=== PATIENT | female | born 1940 | race Two or more races ===

== ENCOUNTER 2020-05-23 13:25 | Inpatient (IN) | payer MEDICARE, MEDICAID ==
[~2020-05-23] VITALS: Ht 154.9 cm; Wt 64.4 kg
--- NOTE | 2020-05-23 13:44 | Emergency Room Report ---
History of Present Illness General Chief Complaint: Abdominal Pain Source: Patient (Jamie Billingsley MD) Present Illness HPI Patient is a 80-year-old female presents for increased epigastric pain and right upper abdominal pain. Onset of symptoms after eating approximately 15 to 20 minutes. Reports having increased sharp pain to the right upper abdomen. Associated nausea and vomiting without hematemesis. Onset of symptoms today. Reports having prior tubal ligation but denies any other surgeries. Prior history of CVA and is taking unknown blood thinner. Patient had not been having any hematemesis.Pain was waxing and waning. Sharp in nature (Jamie Billingsley MD) Allergies: Coded Allergies: No Known Allergies (Unverified , 05/23/20) COVID-19 Screening Contact w/high risk pt: No Experienced COVID-19 symptoms?: No COVID-19 Testing performed SUSTAINABILITY COMMUNICATOR: No (Jamie Billingsley MD) Patient History Past Medical History: see triage record Reviewed Nursing Documentation: PMH: Agreed; PSxH: Agreed (Jamie Billingsley MD) Nursing Documentation-PMH Past Medical History: No History, Except For Hx Hypertension: Yes Hx Cerebrovascular Accident: Yes (Jamie Billingsley MD) Review of Systems All Other Systems: negative except mentioned in HPI (Jamie Billingsley MD) Physical Exam Vital Signs Date Time Temp Pulse Resp B/P (MAP) Pulse Ox O2 Delivery O2 Flow Rate FiO2 05/23/20 13:30 97.0 73 17 138/70 (92) 98 Room Air Sp02 EP Interpretation: reviewed, normal General Appearance: normal inspection, alert, GCS 15, moderate distress, Chronically Ill Head: atraumatic ENT: normal ENT inspection, hearing grossly normal, normal voice Neck: normal inspection, full range of motion, supple, no bony tend Respiratory: normal inspection, lungs clear, normal breath sounds, no respiratory distress, no retraction, no wheezing Cardiovascular #1: regular rate, rhythm, no edema Gastrointestinal: normal inspection, normal bowel sounds, soft, no guarding, no hernia, tenderness - Right upper abdomen and epigastric tenderness Genitourinary: no CVA tenderness Musculoskeletal: normal inspection, back normal, normal range of motion Neurologic: alert, motor strength/tone normal, mosaic floor layer III-XII nml as tested, oriented x3, responsive, speech normal, normal inspection Psychiatric: normal inspection, judgement/insight normal, mood/affect normal Skin: no rash (Jamie Billingsley MD) Medical Decision Making Diagnostic Impression: Primary Impression: Acute pancreatitis ER Course Patient presented for epigastric and right upper quadrant pain. Diagnosis include was not limited to cholecystitis, bowel obstruction, gastroenteritis, aortic aneurysm among others. Because of complexity of patient's case laboratory tests and imaging studies were ordered. Patient was noted to have significant tenderness to the right upper abdomen. Patient was given IV pain medication as well as antiemetics. Patient's laboratory testing showed some evidence of pancreatitis EKG interpreted by me showed normal sinus rhythm with a rate of [address] or T wave changes noted. Patient was endorsed to Dr. Man pending final disposition anticipate the patient will likely be hospitalized for further management of pancreatitis. Labs Test 05/23/20 13:50 White Blood Count 18.0 K/UL (4.8-10.8) Red Blood Count 4.80 M/UL (4.20-5.40) Hemoglobin 15.5 G/DL (12.0-16.0) Hematocrit 47.4 % (37.0-47.0) Mean Corpuscular Volume 99 FL (80-99) Mean Corpuscular Hemoglobin 32.3 PG (27.0-31.0) Mean Corpuscular Hemoglobin Concent 32.7 G/DL (32.0-36.0) Red Cell Distribution Width 12.9 % (11.6-14.8) Platelet Count 235 K/UL (150-450) Mean Platelet Volume 8.0 FL (6.5-10.1) Neutrophils (%) (Auto) % (45.0-75.0) Lymphocytes (%) (Auto) % (20.0-45.0) Monocytes (%) (Auto) % (1.0-10.0) Eosinophils (%) (Auto) % (0.0-3.0) Basophils (%) (Auto) % (0.0-2.0) Differential Total Cells Counted 100 Neutrophils % (Manual) 75 % (45-75) Lymphocytes % (Manual) 21 % (20-45) Monocytes % (Manual) 3 % (1-10) Eosinophils % (Manual) 1 % (0-3) Basophils % (Manual) 0 % (0-2) Band Neutrophils 0 % (0-8) Platelet Estimate Adequate Platelet Morphology Normal Red Blood Cell Morphology Normal Prothrombin Time 11.2 SEC (9.30-11.50) Prothromb Time International Ratio 1.0 (0.9-1.1) Activated Partial Thromboplast Time 25 SEC (23-33) Sodium Level 141 MMOL/L (136-145) Potassium Level 3.9 MMOL/L (3.5-5.1) Chloride Level 106 MMOL/L (98-107) Carbon Dioxide Level 26 MMOL/L (21-32) Anion Gap 10 mmol/L (5-15) Blood Urea Nitrogen 15 mg/dL (7-18) Creatinine 1.1 MG/DL (0.55-1.30) Estimat Glomerular Filtration Rate 47.9 mL/min (>60) Glucose Level 115 MG/DL (74-106) Calcium Level 9.0 MG/DL (8.5-10.1) Total Bilirubin 0.6 MG/DL (0.2-1.0) Aspartate Amino Transf (AST/SGOT) 34 U/L (15-37) Alanine Aminotransferase (ALT/SGPT) 15 U/L (12-78) Alkaline Phosphatase 72 U/L (46-116) Troponin I 0.007 ng/mL (0.000-0.056) Total Protein 8.0 G/DL (6.4-8.2) Albumin 3.8 G/DL (3.4-5.0) Globulin 4.2 g/dL Albumin/Globulin Ratio 0.9 (1.0-2.7) Lipase > 2000 U/L (73-393) (Jamie Billingsley MD) ER Course Assumed care of the patient from the previous provider at approximately 1430. Please refer to initial note for full history and physical exam. Briefly, 80-year-old female presenting for abdominal pain. Labs are consistent with acute pancreatitis lipase greater than 2000. White count elevated 18. LFT and bilirubin within normal limits. CT now resulted showing pancreatic pseudocyst but no pancreatic head necrosis. Gallbladder dilated but no obvious stones noted. Patient will be admitted for acute pancreatitis. Given broad- spectrum antibiotics IV fluids and pain medications. GI and general surgery consulted. Admitted to Dr. Lawson as he is the assigned hospitalist for her insurance plan. (Jose Man MD) Last Vital Signs Date Time Temp Pulse Resp B/P (MAP) Pulse Ox O2 Delivery O2 Flow Rate FiO2 05/23/ 13:30 97.0 73 17 138/70 (92) 98 Room Air Status: unchanged (Jamie Billingsley MD) Disposition: ADMITTED INPATIENT Condition: Serious Scripts Unable to Obtain Active Prescriptions or Reported Meds Jamie Billingsley MD May 23, 2020 13:44 Jose Man MD May 23, 2020 16:22
[2020-05-23] MEDS ORDERED: Morphine Sulfate 2mg/ml Inj(IV/IM USE ONLY) IVP ONE (13:45)
[2020-05-23] MEDS ORDERED: Omnipaque-300 100ml vial INJ PRN (13:45)
[2020-05-23 13:55] VITALS: BP 132/71
--- NOTE | 2020-05-23 13:55 | NUR ---
ED Nurse Note: Pt walked into ED for abdominal pain and nausea since 1300 today. Pt had BM adn then had sudden sever pain in lower abdomen and vomiting. Pain is 10/10. Pt is alert and orientedx4, ambulatory. She has been seen by [facility].
[2020-05-23 13:56] LABS: HEMATOCRIT 47.4 % (37.0-47.0); HEMOGLOBIN 15.5 G/DL (12.0-16.0); MEAN CORPUSCULAR VOLUME 99 FL (80-99); PLATELET COUNT 235 K/UL (150-450); RED CELL DISTRIBUTION WIDTH 12.9 % (11.6-14.8)
[2020-05-23 14:07] LABS: ANION GAP 10 mmol/L (5-15); BLOOD UREA NITROGEN 15 mg/dL (7-18); CARBON DIOXIDE 26 MMOL/L (21-32); CHLORIDE 106 MMOL/L (98-107); CREATININE 1.1 MG/DL (0.55-1.30); POTASSIUM 3.9 MMOL/L (3.5-5.1); SODIUM 141 MMOL/L (136-145)
[2020-05-23 14:12] LABS: ALANINE AMINOTRANSFERASE 15 U/L (12-78); ALBUMIN 3.8 G/DL (3.4-5.0); ALBUMIN/GLOBULIN RATIO 0.9 (1.0-2.7); ALKALINE PHOSPHATASE 72 U/L (46-116); ASPARTATE AMINO TRANSFERASE 34 U/L (15-37); BILIRUBIN,TOTAL 0.6 MG/DL (0.2-1.0)
[2020-05-23 15:51] VITALS: BP 128/73
--- NOTE | 2020-05-23 15:51 | Diagnostic Imaging Report ---
Clinical Indication: Epigastric and right upper abdominal pain Technique: No oral contrast utilized, per emergency room physician request IV administration nonionic contrast. Venous phase spiral acquisition obtained through the abdomen and pelvis. Multiplanar reconstructions were generated. Total dose length product 294 mGycm. CTDIvol(s) 5 mGy. Dose reduction achieved using automated exposure control Comparison: none Findings: The pancreas is mildly prominent. There is infiltration of the peripancreatic fat. Fluid is seen tracking into the lesser sac, and along the mesenteric root and Gerota's fascia on the right. A small amount of fluid is also seen over the dome of the spleen. There is a cystic lesion in the pancreatic tail which measures 2 cm in diameter. No other organized fluid collection demonstrated. The pancreas enhances normally. The gallbladder is distended. Demonstrates a small amount of mural calcification and mural edema. No definite gallstones. The common bile duct is borderline dilated, measuring 7 mm diameter. No definite downstream obstructive lesion is demonstrated. The liver demonstrates multiple subcentimeter low-attenuation lesions which are too small to characterize. The spleen, adrenals, kidneys are unremarkable. No retroperitoneal or mesenteric mass or adenopathy. No pelvic mass or adenopathy. Lack of enteric contrast limits assessment of the GI tract. The colon demonstrates multiple diverticula. The appendix is normal. The small bowel is nondilated. No free intraperitoneal gas demonstrated. Distal esophagus is slightly fluid-filled. The stomach and duodenum are unremarkable. The included lung bases demonstrate bilateral posterior dependent atelectatic changes. The bones demonstrate degenerative spondylosis changes. Impression: Evidence of acute pancreatitis. No evidence of pancreatic necrosis 2 cm cystic lesion in the pancreatic tail. If there is been prior history of pancreatitis, this likely represents a pseudocyst. However, the possibility of pancreatic cystic neoplasm should also be considered and follow-up imaging is recommended Distended gallbladder without stones. Mild gallbladder wall edema. Likely reactive related to the the pancreatic inflammation, but the possibility of acute cholecystitis should also be considered. Borderline extra hepatic biliary ductal dilatation without downstream obstructive lesion demonstrated, probably age-related Subcentimeter low-attenuation lesions in the liver, too small to characterize, most likely benign simple cysts or bile hamartomas Colonic diverticula. No evidence of diverticulitis Fluid-filled esophagus, probably due to age-related dysmotility Basilar dependent pulmonary atelectatic changes and degenerative spondylosis changes incidentally noted The CT scanner at [facility] is accredited by the [employer] and the scans are performed using protocols designed to limit radiation exposure to as low as reasonably achievable to attain images of sufficient resolution adequate for diagnostic evaluation.
[2020-05-23 15:59] LABS: APPEARANCE,URINE CLEAR; BILIRUBIN, URINE NEGATIVE (NEGATIVE); COLOR,URINE PALE YELLOW; GLUCOSE, URINE (UA) NEGATIVE (NEGATIVE); KETONES,URINE 2+ (NEGATIVE); LEUKOCYTE ESTERASE ,URINE NEGATIVE (NEGATIVE); NITRITE,URINE NEGATIVE (NEGATIVE); PH,URINE 5 (4.5-8.0); PROTEIN,URINE NEGATIVE (NEGATIVE); UROBILINOGEN,URINE NORMAL MG/DL (0.0-1.0)
[2020-05-23] MEDS ORDERED: Piperacillin/Tazobactam 3.375 GM in NS 110 ML IVPB ONE (16:00)
[2020-05-23] MEDS ORDERED: Morphine Sulfate 2mg/ml Inj(IV/IM USE ONLY) IVP PRN (16:30)
[2020-05-23] MEDS ORDERED: ASPIRIN81 MG ORAL (16:33)
[2020-05-23] MEDS ORDERED: HYDROCHLOROTHIA25 MG ORAL (16:33)
[2020-05-23] MEDS ORDERED: DONEPEZIL HCL5 M2 ORAL (16:33)
[2020-05-23] MEDS ORDERED: ENALAPRIL MALEA20 MG ORAL (16:33)
--- NOTE | 2020-05-23 16:34 | NUR ---
ED Nurse Note: report given to RONNA Dia
--- NOTE | 2020-05-23 16:40 | NUR ---
ED Nurse Note: Pt transferred to MS floor with all belongings. Pt has not acute distress.
[2020-05-23 16:45] VITALS: BP 147/92
--- NOTE | 2020-05-23 16:45 | NUR ---
NURSE NOTES: Patient received from ER, via gurney on RA. Respirations even/unlabored. No distress. Patient resting in left lateral position in bed. AOx4 (daughter reports patient is forgetful), calm, Palauan speaking (daughter at bedside to translate). Remains NPO. No NV, RUQ abdominal pain 02/17. IV LW, saline lock, site asymptomatic. All skin assessed (back, elbows, hips, knees, ankles, pedal, heels, sacral), no impairment noted, pedal skin dry/flaky/intact. Gait unsteady, to bathroom, instructed daughter/patient not to get out of bed without assistance. Oriented patient to room, call light and surroundings. Call light in reach, bed in lowest position, will continue to monitor. Belongings (glasses/dentures/purse remain with patient) reviewed with daughter.
--- NOTE | 2020-05-23 17:47 | Diagnostic Imaging Report ---
Indication: Chest pain Technique: One view of the chest Comparison: none Findings: Lungs and pleural spaces are clear. Heart size is normal. Aorta is tortuous and ectatic Impression: No acute process
--- NOTE | 2020-05-23 18:30 | NUR ---
NURSE NOTES: Dr. Lawson called for admission orders, asked to call back, will call back shortly.
--- NOTE | 2020-05-23 18:45 | NUR ---
NURSE NOTES: Called Dr. Lawson back for admission orders, detailed message left with call back number.
--- NOTE | 2020-05-23 19:42 | NUR ---
NURSE HAND-OFF: Important Events on Shift:ER admission Patient Status: stable Diet: NPO Pending Orders: admission orders needed from Dr. Lawson Pending Results/Labs:none Pending MD notification:awaiting call back from Dr. Lawson Latest Vital Signs: Temperature 97.0 , Pulse 70 , B/P 147 /92 , Respiratory Rate 18 , O2 SAT 96 , Room Air, O2 Flow Rate . Vital Sign Comment: none Latest Mast Fall Score: 75 Fall Risk: High Risk Safety Measures: Call light Within Reach, Bed Alarm Zone 1, Side Rails Side Rails x2, Bed position Low and Locked. Fall Precautions: Yellow Socks Yellow Gown Door Sign Patient Fall Education Report given to Thomas FRIEND.
--- NOTE | 2020-05-23 19:45 | NUR ---
NURSE NOTES: Received patient in bed, alert and oriented x4, on room air,no SOB noted. In pain of 8/10. Family at bedside. Granddaughter Vivien with contact # [phone]. Will follow up admission orders to Dr. Lawson. Instructed to use call light for assistance. Call light and needs in reach. Bed in lowest and lock engaged. Will monitor.
--- NOTE | 2020-05-23 20:15 | NUR ---
NURSE NOTES: [employer] Attendant made aware of MD's no callback.
--- NOTE | 2020-05-23 20:30 | NUR ---
NURSE NOTES: Called Dr. Lawson's emergency # and left message for 3rd attempt. Waiting for call back.
--- NOTE | 2020-05-23 20:45 | NUR ---
NURSE NOTES: Obtained admission orders from Dr. Lawson. Will carry out.
[2020-05-23 21:00] VITALS: BP 173/79
[2020-05-23 21:15] VITALS: BP 159/68
[2020-05-23] MEDS: Hydromorphone 0.5mg/0.5ml inj IVP PRN (21:34)
[2020-05-24] VITALS (9 sets, daily range): BP systolic 93–180; BP diastolic 73–86
--- NOTE | 2020-05-24 01:15 | NUR ---
NURSE NOTES: Charge nurse made aware of patient's blood pressure. Trends down when patient is resting. Will continue to monitor.
[2020-05-24] MEDS: Hydromorphone 0.5mg/0.5ml inj IVP PRN ×3 (04:55→16:20)
--- NOTE | 2020-05-24 06:00 | NUR ---
NURSE NOTES: Patient had 1 episode of moderate dark green vomitus. Charge nurse made aware.
[2020-05-24 06:29] LABS: HEMATOCRIT 46.5 % (37.0-47.0); HEMOGLOBIN 15.1 G/DL (12.0-16.0); MEAN CORPUSCULAR VOLUME 100 FL (80-99); PLATELET COUNT 243 K/UL (150-450); RED BLOOD COUNT 4.65 M/UL (4.20-5.40); RED CELL DISTRIBUTION WIDTH 13.2 % (11.6-14.8); WHITE BLOOD COUNT 17.8 K/UL (4.8-10.8)
[2020-05-24 07:16] LABS: ANION GAP 11 mmol/L (5-15); BLOOD UREA NITROGEN 17 mg/dL (7-18); CALCIUM 8.4 MG/DL (8.5-10.1); CARBON DIOXIDE 24 MMOL/L (21-32); CHLORIDE 107 MMOL/L (98-107); CREATININE 1.1 MG/DL (0.55-1.30); POTASSIUM 3.6 MMOL/L (3.5-5.1); SODIUM 142 MMOL/L (136-145)
--- NOTE | 2020-05-24 07:28 | NUR ---
NURSE HAND-OFF: Important Events on Shift: Admission orders from MD, pain mgt, vomited x1 Patient Status: increased BP Diet: NPO except meds and ice chips Pending Orders: am labs Pending Results/Labs: Pending MD notification: Latest Vital Signs: Temperature 98.6 , Pulse 87 , B/P 151 /79 , Respiratory Rate 20 , O2 SAT 93 , Room Air, O2 Flow Rate . Vital Sign Comment: Latest Mast Fall Score: 75 Fall Risk: High Risk Safety Measures: Call light Within Reach, Bed Alarm Zone 1, Side Rails Side Rails x3, Bed position Low and Locked. Fall Precautions: Yellow Socks Door Sign Patient Fall Education Report given to RONNA Chen.
--- NOTE | 2020-05-24 07:52 | NUR ---
NURSE NOTES: Received report from RONNA Guzman. Pt awake in bed in RA, alert and oriented but forgetful, Occitan speaking,able to make needs known. Breathing even and unlabored. Denies pain at this time. Endorsed by night nurse that pt had 1 episode of vomiting this morning and high BP. IV intact and patent running IVF. Bed in low position and locked. Call light within reach. Will continue to monitor.
[2020-05-24 08:08] LABS: AMYLASE 606 U/L (25-115)
--- NOTE | 2020-05-24 08:31 | NUR ---
NURSE NOTES: Received report from Lab, Amylase is 606. Left voice mail to Dr. Lawson
--- NOTE | 2020-05-24 10:16 | Diagnostic Imaging Report ---
EXAM: US Abdomen Limited, Gallbladder CLINICAL HISTORY: Abdominal pain. Patient is a 80-year-old female presents for increased epigastric pain and right upper abdominal pain. Onset of symptoms after eating approximately 15 to 20 minutes. Reports having increased sharp pain to the right upper abdomen. Associated nausea and vomiting without hematemesis. Onset of symptoms today. Reports having prior tubal ligation but denies any other surgeries. Prior history of CVA and is taking unknown blood thinner. Patient had not been having any hematemesis. Pain was waxing and waning. Sharp in nature TECHNIQUE: Real-time ultrasound of the right upper quadrant with image documentation. COMPARISON: No relevant prior studies available. FINDINGS: Liver: Liver diameter of 14.7 cm. No visible parenchymal lesions. No intrahepatic biliary ductal dilatation. Gallbladder: Distended gallbladder with mild wall thickening up to 4.2 mm. No visible stones or sludge. No pericholecystic fluid. Common bile duct: Common bile duct diameter of 5.2 mm, within normal limits. Pancreas: Unremarkable as visualized. Aorta: Proximal abdominal aorta appears within normal limits. Mid and distal abdominal aorta are scattered by bowel gas. IMPRESSION: Distended gallbladder with mild wall thickening up to 4.2 mm. No visible stones or sludge. No pericholecystic fluid. Normal diameter of the common bile duct.
--- NOTE | 2020-05-24 12:30 | NUR ---
NURSE NOTES: BP 180/86, c/o abd pain 7/10. Clonidine 0.1mg PRN and Dilaudid 0.5mg PRN given. Will continue to monitor.
--- NOTE | 2020-05-24 13:45 | Consultation ---
DATE OF CONSULTATION: 05/24/2020 CHIEF COMPLAINT: Abdominal pain, pancreatitis. HISTORY OF PRESENT ILLNESS: This is a very pleasant 80-year-old female with past medical history of diabetes, hypertension presented to the hospital with complaint of acute onset of abdominal pain with vomiting. The patient was diagnosed with pancreatitis based on elevated amylase and lipase. CT of the abdomen and pelvis in the ER showed evidence of 2 cm pancreatic cystic lesion in the tail, questionable pseudocyst from prior pancreatitis and mildly dilated common bile duct, distended gallbladder without stone. The patient had same symptoms about 2 months ago according to her went away with drinking hot water and it came back again. PAST MEDICAL HISTORY: 1. Hypertension. 2. Diabetes. 3. Diverticulosis. PAST SURGICAL HISTORY: None. ALLERGIES: To penicillin. MEDICATIONS: Please see medication reconciliation list. SOCIAL HISTORY: The patient denies any tobacco, alcohol, or drug abuse. FAMILY HISTORY: Noncontributory. REVIEW OF SYSTEMS: A 10-point review of systems performed and pertinent positives in HPI. PHYSICAL EXAMINATION: VITAL SIGNS: Temperature is 98.8, pulse 83, respirations 20, blood pressure . HEENT: Normocephalic and atraumatic. Sclerae anicteric. NECK: Supple. No evidence of obvious lymphadenopathy. CARDIOVASCULAR: Regular rate. Plus S1 and S2. LUNGS: Clear to auscultation bilaterally. ABDOMEN: Positive bowel sounds. There is tenderness to palpation in the epigastric area and right upper quadrant. No rebound. No guarding. No peritoneal sign. EXTREMITIES: No cyanosis, no clubbing, no edema. LABORATORY DATA: White count 17.8, hemoglobin 15, hematocrit 46, platelets are 243. ASSESSMENT: The patient is a 80-year-old female with pancreatitis, pancreatic lesion, questionable cyst versus pseudocyst versus the cystic tumor. Distended gallbladder without any stone, mildly dilated common bile duct, diverticulosis. PLAN: At this time the cause of pancreatitis is not clear. The patient denies any alcohol usage. Gallbladder is distended, but there was no stone, so we are going to order an abdominal ultrasound for further evaluation to see if there is any gallstones in the gallbladder. If there is a gallstones, the most probably diagnosis would be gallstone pancreatitis. If there is no gallstones, we will consider doing either EUS versus MRCP on Tuesday for further evaluation of the cystic lesion of the pancreas and also to evaluate for dilated common bile duct. Meanwhile, the patient to be kept NPO, IV fluids for hydration. Repeat labs for tomorrow. Lipid panel for tomorrow. We will follow closely. I want to thank, Dr. Lawson, for this kind referral. Pablito Hall M.D. DR: Eder JOB#: [id number] CC: Antonio Lawson M.D.; Fax#: [phone]
--- NOTE | 2020-05-24 16:14 | History and Physical Report ---
DATE OF ADMISSION: 05/23/2020 HISTORY OF PRESENT ILLNESS: This is a 80-year-old female who came in with abdominal pain to the hospital. This occurred approximately an hour before presentation. She had right-sided upper abdominal pain. The patient was admitted to the hospital. She underwent a complete workup. There was concern she may have had pancreatitis. Gastroenterology and Surgery were consulted. The patient has a previous history of CVA. HOME MEDICATIONS: Antihypertensives and an unknown blood thinner. REVIEW OF SYSTEMS: Denies any headaches, hematemesis, melena, hematochezia, or weight loss. PHYSICAL EXAMINATION: GENERAL: A 80-year-old female. HEENT: Unremarkable. LUNGS: Clear breath sounds. ABDOMEN: Soft. There is epigastric discomfort and right upper quadrant tenderness. VITAL SIGNS: Blood pressure is 170/80, heart rate 84, respirations 18, she is afebrile. LABORATORY TESTING: White count 17.8, hemoglobin 15. Amylase 600, lipase over 2000, glucose 200. Coags are negative. Urinalysis is negative. IMAGING STUDIES: The patient underwent abdominal ultrasound, which shows distended gallbladder with mild wall thickening. CBD of 5.2 mm. She underwent a chest x-ray, which showed clear lung weinberg bilaterally. She also underwent a abdominopelvic CT, which showed bibasilar atelectasis, evidence of pancreatitis with a 2.0 cm cystic lesion in the pancreatic tail, which could represent cirrhosis. The gallbladder is distended with mild gallbladder edema. IMPRESSION: 1. Pancreatitis. 2. Possible pseudocyst. 3. Possible cholecystitis. 4. History of CVA. 5. Hyperglycemia. 6. Diabetes. 7. Hypertension. DISCUSSION: Admit to the hospital. We will initiate clonidine by mouth, broad-spectrum antibiotics, IV fluids, DVT prophylaxis. GI and Surgery have been consulted. We will follow. Antonio Lawson M.D. DR: VALENTIN JOB#: [id number] CC:
--- NOTE | 2020-05-24 18:10 | Consultation ---
History of Present Illness General Date patient seen: May 24, 2020 Reason for Hospitalization: Abdominal Pain Present Illness HPI 80 year old female presented to [facility] [place] ED with complaints of acute onset RUQ abdominal pain x 1 day. no n/v/f/c. radiation to the back. nml flatus and bm. similar pain prior but not as severe. surgery called to evaluate and assist with care. patient seen, chart reviewed, patient examined. states pain improved since admission. currently feels better. lip elevated and remains elevated. is not hungry. imaging reviewed Allergies: Coded Allergies: PENICILLINS (Unverified Allergy, Intermediate, 05/23/20) Per daughter, unknown reaction COVID-19 Screening Contact w/high risk pt: No Experienced COVID-19 symptoms?: No Medication History Scheduled Aspirin* (Aspirin*), 81 MG ORAL DAILY, (Reported) Donepezil Hcl* (Donepezil Hcl*), 5 MG ORAL DAILY, (Reported) Enalapril Maleate* (Enalapril Maleate*), 20 MG ORAL EVERY 12 HOURS, (Reported) Hydrochlorothiazide* (Hydrochlorothiazide*), 25 MG ORAL DAILY, (Reported) Patient History History Provided By: Medical Record, PMD Healthcare decision maker Resuscitation status Advanced Directive on File Past Medical/Surgical History Past Medical/Surgical History: (1) Acute pancreatitis (2) Gallstone pancreatitis Review of Systems Review of Symptoms General ROS: no weight loss or fever Psychological ROS: no depression or mood changes, no memory loss Ophthalmic ROS: no visual changes or eye irritation ENT ROS: no nasal congestion, hearing loss, dizziness Allergy and Immunology ROS: no allergic symptoms or urticaria Hematological and Lymphatic ROS: no swollen glands, unusual bleeding or bruising Endocrine ROS: no polyuria, polydipsia, weight changes, temperature intolerance Respiratory ROS: no cough, shortness of breath, or wheezing Cardiovascular ROS: no chest pain or dyspnea on exertion Gastrointestinal ROS: denies abdominal pain, bright red blood in stool. Musculoskeletal ROS: no myalgias or arthralgias Neurological ROS: no TIA or stroke symptoms Dermatological ROS: no new or changing skin lesions, rashes or pruritis Physical Exam Physical Exam General appearance: alert, cooperative, no distress, appears stated age Head: Normocephalic, without obvious abnormality, atraumatic Eyes: conjunctivae/corneas clear. PERRL, EOM's intact. Fundi benign Throat: Lips, mucosa, and tongue normal. Teeth and gums normal Neck: supple, symmetrical, trachea midline, no adenopathy, thyroid: not enlarg ed, symmetric, no tenderness/mass/nodules, no carotid bruit and no JVD Lungs: clear to auscultation bilaterally Heart: regular rate and rhythm, S1, S2 normal, no murmur, click, rub or gallop Abdomen: soft, non-tender. Bowel sounds normal. No masses, no organomegaly Extremities: extremities normal, atraumatic, no cyanosis or edema Pulses: 2+ and symmetric Skin: Skin color, texture, turgor normal. No rashes or lesions Neurologic: Grossly normal Last 24 Hour Vital Signs Date Time Temp Pulse Resp B/P (MAP) Pulse Ox O2 Delivery O2 Flow Rate FiO2 05/24/20 16:50 98.8 05/24/20 16:19 160/76 05/24/20 16:00 98.9 86 20 160/76 (104) 94 05/24/20 12:56 98.8 05/24/20 12:25 180/86 05/24/20 12:00 99.0 84 20 180/86 (117) 94 05/24/20 10:40 172/80 05/24/20 09:00 Room Air 05/24/20 08:00 98.8 83 20 172/80 (110) 94 05/24/20 04:55 98.6 87 20 151/79 (103) 93 05/24/20 00:45 162/73 (102) 05/24/20 00:35 168/78 (108) 05/24/20 00:30 98.4 81 19 169/79 (109) 94 05/23/20 21:15 159/68 (98) 05/23/20 21:00 Room Air 05/23/20 21:00 98.8 68 18 173/79 (110) 95 Intake and Output 05/23/20 05/24/20 19:00 07:00 Intake Total 0 ml 600 ml Output Total 50 ml Balance -50 ml 600 ml Intake Oral 0 ml IV Total 600 ml Output Emesis 50 ml # Voids 1 Laboratory Tests Test 05/24/20 05:10 White Blood Count 17.8 K/UL (4.8-10.8) H Red Blood Count 4.65 M/UL (4.20-5.40) Hemoglobin 15.1 G/DL (12.0-16.0) Hematocrit 46.5 % (37.0-47.0) Mean Corpuscular Volume 100 FL (80-99) H Mean Corpuscular Hemoglobin 32.5 PG (27.0-31.0) H Mean Corpuscular Hemoglobin Concent 32.5 G/DL (32.0-36.0) Red Cell Distribution Width 13.2 % (11.6-14.8) Platelet Count 243 K/UL (150-450) Mean Platelet Volume 7.4 FL (6.5-10.1) Neutrophils (%) (Auto) % (45.0-75.0) Lymphocytes (%) (Auto) % (20.0-45.0) Monocytes (%) (Auto) % (1.0-10.0) Eosinophils (%) (Auto) % (0.0-3.0) Basophils (%) (Auto) % (0.0-2.0) Differential Total Cells Counted 100 Neutrophils % (Manual) 86 % (45-75) H Lymphocytes % (Manual) 3 % (20-45) L Monocytes % (Manual) 1 % (1-10) Eosinophils % (Manual) 0 % (0-3) Basophils % (Manual) 0 % (0-2) Band Neutrophils 10 % (0-8) H Platelet Estimate Adequate Platelet Morphology Normal Macrocytosis 1+ Sodium Level 142 MMOL/L (136-145) Potassium Level 3.6 MMOL/L (3.5-5.1) Chloride Level 107 MMOL/L (98-107) Carbon Dioxide Level 24 MMOL/L (21-32) Anion Gap 11 mmol/L (5-15) Blood Urea Nitrogen 17 mg/dL (7-18) Creatinine 1.1 MG/DL (0.55-1.30) Estimat Glomerular Filtration Rate 47.9 mL/min (>60) Glucose Level 200 MG/DL (74-106) H Calcium Level 8.4 MG/DL (8.5-10.1) L Amylase Level 606 U/L (25-115) *H Lipase > 2000 U/L (73-393) H Height (Feet): 5 Height (Inches): 2.00 Weight (Pounds): 140 Medications Current Medications Medications (Trade) Dose Ordered Sig/Solomon Route PRN Reason Start Time Stop Time Status Last Admin Dose Admin Clonidine HCl (Catapres Tab) 0.1 mg Q4H PRN ORAL For High Blood Pressure 05/24/20 12:00 08/22/20 11:59 05/24/20 16:19 Hydromorphone HCl (Dilaudid) 0.5 mg Q4H PRN IVP Severe Pain (Pain Scale 7-10) 05/23/20 21:00 05/30/20 20:59 05/24/20 16:20 Iohexol (OMNIPAQUE-300 100ml) 100 ml NOW PRN INJ Radiology Procedure 05/23/20 13:45 05/25/20 13:44 Morphine Sulfate (Morphine Sulfate) 2 mg Q4H PRN IVP For Pain 05/23/20 16:30 05/30/20 16:29 05/23/20 16:26 Ondansetron HCl (Zofran) 4 mg Q6H PRN IVP Nausea & Vomiting 05/24/20 10:00 06/23/20 09:59 Sodium Chloride 1,000 ml @ 75 mls/hr [id number] IV 05/23/20 21:00 06/22/20 20:59 05/24/20 10:39 Assessment/Plan Problem List: (1) Acute pancreatitis Assessment & Plan: Possible acute acalculous cholecystitis with acute pancreatitis US and CT noted labs reviewed GI input noted npo iv fluids trend labs bowel rest will follow with exams thank you Liver: Liver diameter of 14.7 cm. No visible parenchymal lesions. No intrahepatic biliary ductal dilatation. Gallbladder: Distended gallbladder with mild wall thickening up to 4.2 mm. No visible stones or sludge. No pericholecystic fluid. Common bile duct: Common bile duct diameter of 5.2 mm, within normal limits. Pancreas: Unremarkable as visualized. Aorta: Proximal abdominal aorta appears within normal limits. Mid and distal abdominal aorta are scattered by bowel gas. IMPRESSION: Distended gallbladder with mild wall thickening up to 4.2 mm. No visible stones or sludge. No pericholecystic fluid. Normal diameter of the common bile duct. ICD Codes: K85.90 - Acute pancreatitis without necrosis or infection, unspecified SNOMED: 370198140 (2) Gallstone pancreatitis Assessment & Plan: The pancreas is mildly prominent. There is infiltration of the peripancreatic fat. Fluid is seen tracking into the lesser sac, and along the mesenteric root and Gerota's fascia on the right. A small amount of fluid is also seen over the dome of the spleen. There is a cystic lesion in the pancreatic tail which measures 2 cm in diameter. No other organized fluid collection demonstrated. The pancreas enhances normally. The gallbladder is distended. Demonstrates a small amount of mural calcification and mural edema. No definite gallstones. The common bile duct is borderline dilated, measuring 7 mm diameter. No definite downstream obstructive lesion is demonstrated. The liver demonstrates multiple subcentimeter low-attenuation lesions which are too small to characterize. The spleen, adrenals, kidneys are unremarkable. No retroperitoneal or mesenteric mass or adenopathy. No pelvic mass or adenopathy. Lack of enteric contrast limits assessment of the GI tract. The colon demonst rates multiple diverticula. The appendix is normal. The small bowel is nondilated. No free intraperitoneal gas demonstrated. Distal esophagus is slightly fluid-filled. The stomach and duodenum are unremarkable. The included lung bases demonstrate bilateral posterior dependent atelectatic changes. The bones demonstrate degenerative spondylosis changes. Impression: Evidence of acute pancreatitis. No evidence of pancreatic necrosis 2 cm cystic lesion in the pancreatic tail. If there is been prior history of pancreatitis, this likely represents a pseudocyst. However, the possibility of pancreatic cystic neoplasm should also be considered and follow-up imaging is recommended Distended gallbladder without stones. Mild gallbladder wall edema. Likely reactive related to the the pancreatic inflammation, but the possibility of acute cholecystitis should also be considered. Borderline extra hepatic biliary ductal dilatation without downstream obstructive lesion demonstrated, probably age- related Subcentimeter low-attenuation lesions in the liver, too small to characterize, most likely benign simple cysts or bile hamartomas Colonic diverticula. No evidence of diverticulitis Fluid-filled esophagus, probably due to age-related dysmotility Basilar dependent pulmonary atelectatic changes and degenerative spondylosis changes incidentally noted ICD Codes: K85.10 - Biliary acute pancreatitis without necrosis or infection SNOMED: [id number] Christiano Barger May 24, 2020 18:10
--- NOTE | 2020-05-24 19:29 | NUR ---
NURSE HAND-OFF: Important Events on Shift:[Critical Amylase level, high BP, Pain was controlled, No N/V, US ABD done.] Patient Status: [stable] Diet: [NPO] Pending Orders: [] Pending Results/Labs:[] Pending MD notification:[] Latest Vital Signs: Temperature 98.8 , Pulse 86 , B/P 160 /76 , Respiratory Rate 20 , O2 SAT 94 , Room Air, O2 Flow Rate . Vital Sign Comment: [high BP] Latest Mast Fall Score: 75 Fall Risk: High Risk Safety Measures: Call light Within Reach, Bed Alarm Zone 1, Side Rails Side Rails x3, Bed position Low and Locked. Fall Precautions: Yellow Socks Door Sign Patient Fall Education Report given to [RONNA Campbell].
--- NOTE | 2020-05-24 19:39 | NUR ---
NURSE NOTES: Pt is sitting up in bed, awake on RA, alert and oriented but forgetful at times, reportedly. Bel[place]ian speaking, able to make needs known, no complaints at this time, denies pain presently. Breathing even and unlabored. No nausea, but an episode earlier this morning, denies nausea at present. IV intact L hand, patent, asymptomatic running IVF NS at 75 ml/h. Bed is in lowest position and locked, bed alarm on, asked pt to use call light if she needs to get up, verbalized understanding. Call light within reach. Will continue to monitorpt, in room close to nursing station, fall precautions in place.
--- NOTE | 2020-05-24 23:45 | NUR ---
NURSE NOTES: Called to inform Dr Lawson of increasing temperature. Temp was 101.2. Cooling measures applied and will admin Tylenol and reassess, will continue to monitor. No new orders given. Addendum: 05/24/20 at 2350 by Shannan Ambrose RN will admin cooling measures, no tylenol, will reassess temperature
[2020-05-25] VITALS (8 sets, daily range): BP systolic 142–162; BP diastolic 66–80
[2020-05-25] MEDS: Hydromorphone 0.5mg/0.5ml inj IVP PRN ×3 (00:43→21:20)
[2020-05-25 06:41] LABS: HEMATOCRIT 42.8 % (37.0-47.0); MEAN CORPUSCULAR VOLUME 99 FL (80-99); PLATELET COUNT 214 K/UL (150-450); WHITE BLOOD COUNT 24.8 K/UL (4.8-10.8)
--- NOTE | 2020-05-25 06:53 | NUR ---
NURSE NOTES: Informed Dr Hall that pt was febrile overnight, current temp 99.0. Just received order for tylenol for temp >100.5, input order Informed that pt had critical lab WBC count of 24.8 trending up from 17.8
--- NOTE | 2020-05-25 07:03 | NUR ---
NURSE HAND-OFF: Important Events on Shift:Critical high WBC at 24.8, from previous day (17.8)Left voicemail for Dr Lawson regarding critical lab and informed Dr Hall in person. Informed Dr Hall that pt was febrile overnight up to 101.2 at highest, current temp 99.0 orally. Just received order for tylenol for temp >100.5, input order Informed Dr that pt had critical lab WBC count of 24.8 trending up from 17.8 Patient Status: ( slightly febrile, BP elevated overnight, gave clonidine 0.1 mg twice. ] Diet: Pending Orders: Pending Results/Labs: Pending MD notification: Latest Vital Signs: Temperature 99.0 , Pulse 89 , B/P 142 /66 , Respiratory Rate 19 , O2 SAT 93 , Room Air, O2 Flow Rate . Vital Sign Comment: Latest Mast Fall Score: 75 Fall Risk: High Risk Safety Measures: Call light Within Reach, Bed Alarm Zone 1, Side Rails Side Rails x3, Bed position Low and Locked. Fall Precautions: Yellow Socks Door Sign Patient Fall Education Report given to .
[2020-05-25 07:20] LABS: ALANINE AMINOTRANSFERASE 20 U/L (12-78); ALBUMIN 2.7 G/DL (3.4-5.0); ALBUMIN/GLOBULIN RATIO 0.7 (1.0-2.7); ALKALINE PHOSPHATASE 63 U/L (46-116); AMYLASE 329 U/L (25-115); ANION GAP 8 mmol/L (5-15); ASPARTATE AMINO TRANSFERASE 24 U/L (15-37); BILIRUBIN,TOTAL 0.8 MG/DL (0.2-1.0); BLOOD UREA NITROGEN 18 mg/dL (7-18); CARBON DIOXIDE 25 MMOL/L (21-32); CHLORIDE 110 MMOL/L (98-107); CHOLESTEROL 133 MG/DL (< 200); HDL CHOLESTEROL 45 MG/DL (40-60); POTASSIUM 3.6 MMOL/L (3.5-5.1); SODIUM 143 MMOL/L (136-145); TRIGLYCERIDES 59 MG/DL (30-150)
--- NOTE | 2020-05-25 07:45 | NUR ---
NURSE NOTES: Received report from Niharika Campbell. Pt asleep in bed in RA. Breathing even and unlabored. Endorsed by offgoing nurse, that Pt had high BP, febrile over the night and critical high WBC. Will follow up. IV intact L hand, patent, asymptomatic running IVF NS at 75 ml/h. Bed is in lowest position and locked. Call light within reach. Will continue to monitor.
--- NOTE | 2020-05-25 09:07 | General Progress Note ---
Subjective ROS Limited/Unobtainable: Yes Allergies: Coded Allergies: PENICILLINS (Unverified Allergy, Intermediate, 05/23/20) Per daughter, unknown reaction Objective Last 24 Hour Vital Signs Date Time Temp Pulse Resp B/P (MAP) Pulse Ox O2 Delivery O2 Flow Rate FiO2 05/25/20 08:00 99.8 81 18 143/67 (92) 93 05/25/20 05:00 99.0 142/66 (91) 05/25/20 04:48 155/78 05/25/20 04:29 99.9 89 19 155/78 (103) 93 05/25/20 01:40 99.3 142/72 (95) 05/24/20 23:52 162/76 05/24/20 23:39 101.2 85 19 162/76 (104) 94 05/24/20 21:00 Room Air 05/24/20 20:00 100.3 85 17 93/73 (80) 94 05/24/20 16:50 98.8 05/24/20 16:19 160/76 05/24/20 16:00 98.9 86 20 160/76 (104) 94 05/24/20 12:56 98.8 05/24/20 12:25 180/86 05/24/20 12:00 99.0 84 20 180/86 (117) 94 05/24/20 10:40 172/80 Intake and Output 05/24/20 05/25/20 19:00 07:00 Intake Total 825 ml Output Total 400 ml Balance -400 ml 825 ml IV Total 825 ml Output Urine Total 400 ml # Voids 2 3 Laboratory Tests 05/25/20 04:50: White Blood Count 24.8*H, Red Blood Count 4.30, Hemoglobin 14.0, Hematocrit 42.8, Mean Corpuscular Volume 99, Mean Corpuscular Hemoglobin 32.5H, Mean Corpuscular Hemoglobin Concent 32.6, Red Cell Distribution Width 13.0, Platelet Count 214, Mean Platelet Volume 6.7, Neutrophils (%) (Auto) , Lymphocytes (%) (Auto) , Monocytes (%) (Auto) , Eosinophils (%) (Auto) , Basophils (%) (Auto) , Differential Total Cells Counted 100, Neutrophils % (Manual) 88H, Lymphocytes % (Manual) 8L, Monocytes % (Manual) 4, Eosinophils % (Manual) 0, Basophils % (Manual) 0, Band Neutrophils 0, Platelet Estimate Adequate, Platelet Morphology Normal, Red Blood Cell Morphology , Macrocytosis 1+, Sodium Level 143, Potassium Level 3.6, Chloride Level 110H, Carbon Dioxide Level 25, Anion Gap 8, Blood Urea Nitrogen 18, Creatinine 1.0, Estimat Glomerular Filtration Rate 53.5, Glucose Level 118H, Calcium Level 8.0L, Total Bilirubin 0.8, Aspartate Amino Transf (AST/SGOT) 24, Alanine Aminotransferase (ALT/SGPT) 20, Alkaline Phosphatase 63, Total Protein 6.7, Albumin 2.7L, Globulin 4.0, Albumin/Globulin Ratio 0.7L, Triglycerides Level 59, Cholesterol Level 133, LDL Cholesterol 70, HDL Cholesterol 45, Cholesterol/HDL Ratio 3.0L, Amylase Level 329H, Lipase 1212H Height (Feet): 5 Height (Inches): 2.00 Weight (Pounds): 140 General Appearance: no apparent distress EENT: normal ENT inspection Neck: supple Cardiovascular: normal rate Respiratory/Chest: decreased breath sounds Abdomen: hypoactive bowel sounds, tender Extremities: non-tender Assessment/Plan Problem List: (1) Acute pancreatitis ICD Codes: K85.90 - Acute pancreatitis without necrosis or infection, unspecified SNOMED: [id number] Assessment/Plan: ? cause for pancreatitis CT and us reviewed 2 cm ? pseudocyst vs cystic pancreatic lesion improving lipase start clears MRI of abd IGG 4 repeat labs possible EUS Pablito Hall MD May 25, 2020 09:07
[2020-05-25] MEDS ORDERED: Gadavist 7.5mMol/7.5ml vial IV PRN (09:15)
--- NOTE | 2020-05-25 10:36 | Pulmonology Progress Note ---
Subjective ROS Limited/Unobtainable: Yes Interval Events: Seen by gastroenterology and surgery. Constitutional: Reports: no symptoms HEENT: Repors: no symptoms Respiratory: Reports: no symptoms Cardiovascular: Reports: no symptoms Gastrointestinal/Abdominal: Reports: nausea Genitourinary: Reports: no symptoms Neurologic: Reports: no symptoms Psychiatric: Reports: no symptoms Allergies: Coded Allergies: PENICILLINS (Unverified Allergy, Intermediate, 05/23/20) Per daughter, unknown reaction Objective Last 24 Hour Vital Signs Date Time Temp Pulse Resp B/P (MAP) Pulse Ox O2 Delivery O2 Flow Rate FiO2 05/25/20 09:00 Room Air 05/25/20 08:00 99.8 81 18 143/67 (92) 93 05/25/20 05:00 99.0 142/66 (91) 05/25/20 04:48 155/78 05/25/20 04:29 99.9 89 19 155/78 (103) 93 05/25/20 01:40 99.3 142/72 (95) 05/24/20 23:52 162/76 05/24/20 23:39 101.2 85 19 162/76 (104) 94 05/24/20 21:00 Room Air 05/24/20 20:00 100.3 85 17 93/73 (80) 94 05/24/20 16:50 98.8 05/24/20 16:19 160/76 05/24/20 16:00 98.9 86 20 160/76 (104) 94 05/24/20 12:56 98.8 05/24/20 12:25 180/86 05/24/20 12:00 99.0 84 20 180/86 (117) 94 05/24/20 10:40 172/80 Intake and Output 05/24/20 05/25/20 19:00 07:00 Intake Total 825 ml Output Total 400 ml Balance -400 ml 825 ml IV Total 825 ml Output Urine Total 400 ml # Voids 2 3 General Appearance: no acute distress HEENT: normocephalic Respiratory: chest wall non-tender, lungs clear Cardiovascular: normal peripheral pulses Abdomen: normal bowel sounds Microbiology Date/Time Source Procedure Growth Status 05/23/20 15:08 Nasopharynx SARS-CoV-2 RdRp Gene Assay - Final Complete Laboratory Tests 05/25/20 04:50: White Blood Count 24.8*H, Red Blood Count 4.30, Hemoglobin 14.0, Hematocrit 42.8, Mean Corpuscular Volume 99, Mean Corpuscular Hemoglobin 32.5H, Mean Corpuscular Hemoglobin Concent 32.6, Red Cell Distribution Width 13.0, Platelet Count 214, Mean Platelet Volume 6.7, Neutrophils (%) (Auto) , Lymphocytes (%) (Auto) , Monocytes (%) (Auto) , Eosinophils (%) (Auto) , Basophils (%) (Auto) , Differential Total Cells Counted 100, Neutrophils % (Manual) 88H, Lymphocytes % (Manual) 8L, Monocytes % (Manual) 4, Eosinophils % (Manual) 0, Basophils % (Manual) 0, Band Neutrophils 0, Platelet Estimate Adequate, Platelet Morphology Normal, Red Blood Cell Morphology , Macrocytosis 1+, Sodium Level 143, Potassium Level 3.6, Chloride Level 110H, Carbon Dioxide Level 25, Anion Gap 8, Blood Urea Nitrogen 18, Creatinine 1.0, Estimat Glomerular Filtration Rate 53.5, Glucose Level 118H, Calcium Level 8.0L, Total Bilirubin 0.8, Aspartate Amino Transf (AST/SGOT) 24, Alanine Aminotransferase (ALT/SGPT) 20, Alkaline Phosphatase 63, Total Protein 6.7, Albumin 2.7L, Globulin 4.0, Albumin/Globulin Ratio 0.7L, Triglycerides Level 59, Cholesterol Level 133, LDL Cholesterol 70, HDL Cholesterol 45, Cholesterol/HDL Ratio 3.0L, Amylase Level 329H, Lipase 1212H Current Medications Medications (Trade) Dose Ordered Sig/Solomon Route PRN Reason Start Time Stop Time Status Last Admin Dose Admin Acetaminophen (Tylenol) 650 mg Q6H PRN ORAL Temp >100.5 05/25/20 07:00 06/24/20 06:59 Clonidine HCl (Catapres Tab) 0.1 mg Q4H PRN ORAL For High Blood Pressure 05/24/20 12:00 08/22/20 11:59 05/25/20 04:48 Gadobutrol (Gadavist) 7.5 mmol NOW PRN IV Radiology Procedure 05/25/20 09:15 05/29/20 09:14 Hydromorphone HCl (Dilaudid) 0.5 mg Q4H PRN IVP Severe Pain (Pain Scale 7-10) 05/23/20 21:00 11/20/20 20:59 05/25/20 10:10 Iohexol (OMNIPAQUE-300 100ml) 100 ml NOW PRN INJ Radiology Procedure 05/23/20 13:45 05/25/20 13:44 Morphine Sulfate (Morphine Sulfate) 2 mg Q4H PRN IVP For Pain 05/23/20 16:30 05/30/20 16:29 05/23/20 16:26 Ondansetron HCl (Zofran) 4 mg Q6H PRN IVP Nausea & Vomiting 05/24/20 10:00 06/23/20 09:59 Sodium Chloride 1,000 ml @ 75 mls/hr [id number] IV 05/23/20 21:00 06/22/20 20:59 05/24/20 23:55 Assessment/Plan Assessment/Plan IMPRESSION: 1. Pancreatitis. 2. Possible pseudocyst. 3. Possible cholecystitis. 4. History of CVA. 5. Hyperglycemia. 6. Diabetes. 7. Hypertension. DISCUSSION: Continue antibiotics. Continue n.p.o. Continue IV fluids. Continue GI and DVT prophylaxis. Await follow-up consultations by gastroenterology and general surgery. Has had increase in WBC. Will consult ID. Antonio Lawson M.D. Antonio Lawson MD May 25, 2020 10:36
--- NOTE | 2020-05-25 13:30 | Consultation ---
DATE OF CONSULTATION: 05/25/2020 INFECTIOUS DISEASES CONSULTATION CONSULTING PHYSICIAN: Albino Yeh MD. REFERRING PHYSICIAN: Antonio Lawson MD. REASON FOR CONSULTATION: Leukocytosis and pancreatitis. HISTORY OF PRESENTING ILLNESS: This is a 80-year-old lady with history of hypertension who comes in with abdominal pain. There is a concern for pancreatitis. There is an increasing leukocytosis. An Infectious Diseases consultation has been obtained for antibiotics. PAST MEDICAL HISTORY: 1. History of hypertension. 2. History of CVA. SOCIAL HISTORY: She does not smoke, drink, or use drugs. FAMILY HISTORY: Noncontributory. REVIEW OF SYSTEMS: RESPIRATORY: She had fever and chills. No cough. No shortness of breath or chest pain. CARDIAC: No chest pain. No palpitation. No dizziness. No syncope. GASTROINTESTINAL: No nausea. No vomiting. She does have abdominal pain. No diarrhea. MEDICATIONS: As an inpatient, she is on Tylenol, clonidine, Zofran, Dilaudid, morphine. ALLERGIES: To penicillin, produces a rash. PHYSICAL EXAMINATION: VITAL SIGNS: Temperature of 99.8, T-max of 101.2, pulse of 81, respiratory rate 18, blood pressure 143/67, O2 saturation 93% on room air. HEENT: Pupils equally reactive to light and accommodation. Mouth appears clean without thrush. NECK: Supple. No adenopathy. No JVD. CARDIOVASCULAR: Regular rate and rhythm. No murmurs. LUNGS: Clear to auscultation bilaterally. No crackles. No wheezes. ABDOMEN: Soft. There is epigastric and left upper quadrant tenderness. No organomegaly. EXTREMITIES: No cyanosis, no clubbing, no edema. LABORATORY AND DIAGNOSTIC DATA: White count 24.8, hemoglobin 14, hematocrit 42.8, MCV 99, platelet count of 214, with neutrophils of 88%. Sodium 143, potassium 3.6, chloride 110, bicarb 25, BUN 18, creatinine 1, glucose 118, calcium of 8. Total bilirubin 0.8, AST 24, ALT 20, alkaline phosphatase 63, total protein 6.7, albumin 2.7. Cholesterol of 133. Amylase of 329. Lipase of 1212. UA is showing LE negative. COVID-[address] of the abdomen and pelvis showing evidence of acute pancreatitis. No pancreatic necrosis, 2.2 centimeter cystic lesion in the pancreatic tissue could represent a pseudocyst, distended gallbladder without stones, mild gallbladder wall edema likely reactive with possible acute cholecystitis, extrahepatic biliary ductal dilatation without downstream obstruction, colonic diverticula noted, no diverticulitis, atelectasis noted. Chest x-ray showing no acute process. Abdominal ultrasound showed distended gallbladder with mild thickening. No stones or sludge. No pericholecystic fluid. ASSESSMENT: This is a 80-year-old lady with history of hypertension and CVA who comes in with abdominal pain and fevers and is found to have. 1. Pancreatitis. 2. Leukocytosis. 3. She could have possible pancreatic pseudocyst. 4. She could also possibly have cholecystitis. PLAN: 1. We will start the patient on meropenem. 2. She has been seen by Surgery. 3. We will follow up the patient clinically. I would like to thank, Dr. Lawson, for this consultation. Albino Yeh M.D. DR: Ricky JOB#: [id number] CC: Antonio Lawson M.D.; Fax#: [phone]
[2020-05-25] MEDS: Meropenem 500 MG in NS 55 ML IVPB SCH ×2 (14:02→21:18)
--- NOTE | 2020-05-25 14:21 | NUR ---
CASE MANAGEMENT:INITIAL REVIEW 05/24/20 80 YR OLD FEMALE FROM HOME CC;ABDOMINAL PAIN. VOMITING. SI;ACUTE GALLSTONE PANCREATITIS. 97.0 85 19 138/70 98% ON RA WBC 18.0 LIPASE >2000 UA+ KETONES RAPID COVID ~ NEGATIVE ABD/PELVIS CT ~ Evidence of acute pancreatitis. No evidence of pancreatic necrosis CXR ~ NO ACUTE PROCESS IS;ZOFRAN IV PEPCID IV MORPHINE SULFATE IV IVF NS BOLUS X2 ZOSYN IV ADMITTED TO MED SURG 05/23/20 @ 2047 MED SURG STATUS CASE MANAGEMENT:CONCURRENT REVIEW 05/24/20 SI;ACUTE PANCREATITIS T 101.2 P 89 R 20 BP 162/76 O2 93% ON RA WBC 24.8 BG 200 AMYLASE 606 LIPASE >2000 IS;MEROPENEM IV Q8 CLONIDINE PO DILAUDID IV Q4 PRN IVF NS @ 75 ML/HR MED SURG STATUS DCP;FROM HOME
--- NOTE | 2020-05-25 16:11 | Cardiology Report ---
APPROVED REPORT EKG Measurement Heart [id number] [id number] <Conclusion> Normal sinus rhythm Left axis deviation Moderate voltage criteria for LVH, may be normal variant Possible Lateral infarct, age undetermined Abnormal ECG
--- NOTE | 2020-05-25 17:15 | Surgery Progress Note ---
Surgery Progress Note Subjective Additional Comments feels better pain improved leukocytosis lip trending down mri ?eus Objective Last 24 Hour Vital Signs Date Time Temp Pulse Resp B/P (MAP) Pulse Ox O2 Delivery O2 Flow Rate FiO2 05/25/20 16:00 98.7 94 18 159/70 (99) 93 05/25/20 15:04 162/68 05/25/20 12:00 98.8 81 18 162/68 (99) 93 05/25/20 10:40 99.8 05/25/20 09:00 Room Air 05/25/20 08:00 99.8 81 18 143/67 (92) 93 05/25/20 05:00 99.0 142/66 (91) 05/25/20 04:48 155/78 05/25/20 04:29 99.9 89 19 155/78 (103) 93 05/25/20 01:40 99.3 142/72 (95) 05/24/20 23:52 162/76 05/24/20 23:39 101.2 85 19 162/76 (104) 94 05/24/20 21:00 Room Air 05/24/20 20:00 100.3 85 17 93/73 (80) 94 I&O Intake and Output 05/24/20 05/25/20 19:00 07:00 Intake Total 825 ml Output Total 400 ml Balance -400 ml 825 ml IV Total 825 ml Output Urine Total 400 ml # Voids 2 3 Cardiovascular: RSR Respiratory: clear Abdomen: soft, non-tender, present bowel sounds Extremities: no tenderness, no cyanosis Laboratory Tests Test 05/25/20 04:50 White Blood Count 24.8 K/UL (4.8-10.8) *H Red Blood Count 4.30 M/UL (4.20-5.40) Hemoglobin 14.0 G/DL (12.0-16.0) Hematocrit 42.8 % (37.0-47.0) Mean Corpuscular Volume 99 FL (80-99) Mean Corpuscular Hemoglobin 32.5 PG (27.0-31.0) H Mean Corpuscular Hemoglobin Concent 32.6 G/DL (32.0-36.0) Red Cell Distribution Width 13.0 % (11.6-14.8) Platelet Count 214 K/UL (150-450) Mean Platelet Volume 6.7 FL (6.5-10.1) Neutrophils (%) (Auto) % (45.0-75.0) Lymphocytes (%) (Auto) % (20.0-45.0) Monocytes (%) (Auto) % (1.0-10.0) Eosinophils (%) (Auto) % (0.0-3.0) Basophils (%) (Auto) % (0.0-2.0) Differential Total Cells Counted 100 Neutrophils % (Manual) 88 % (45-75) H Lymphocytes % (Manual) 8 % (20-45) L Monocytes % (Manual) 4 % (1-10) Eosinophils % (Manual) 0 % (0-3) Basophils % (Manual) 0 % (0-2) Band Neutrophils 0 % (0-8) Platelet Estimate Adequate Platelet Morphology Normal Red Blood Cell Morphology Macrocytosis 1+ Sodium Level 143 MMOL/L (136-145) Potassium Level 3.6 MMOL/L (3.5-5.1) Chloride Level 110 MMOL/L (98-107) H Carbon Dioxide Level 25 MMOL/L (21-32) Anion Gap 8 mmol/L (5-15) Blood Urea Nitrogen 18 mg/dL (7-18) Creatinine 1.0 MG/DL (0.55-1.30) Estimat Glomerular Filtration Rate 53.5 mL/min (>60) Glucose Level 118 MG/DL (74-106) H Calcium Level 8.0 MG/DL (8.5-10.1) L Total Bilirubin 0.8 MG/DL (0.2-1.0) Aspartate Amino Transf (AST/SGOT) 24 U/L (15-37) Alanine Aminotransferase (ALT/SGPT) 20 U/L (12-78) Alkaline Phosphatase 63 U/L (46-116) Total Protein 6.7 G/DL (6.4-8.2) Albumin 2.7 G/DL (3.4-5.0) L Globulin 4.0 g/dL Albumin/Globulin Ratio 0.7 (1.0-2.7) L Triglycerides Level 59 MG/DL (30-150) Cholesterol Level 133 MG/DL (< 200) LDL Cholesterol 70 mg/dL (<100) HDL Cholesterol 45 MG/DL (40-60) Cholesterol/HDL Ratio 3.0 (3.3-4.4) L Amylase Level 329 U/L (25-115) H Lipase 1212 U/L (73-393) H Plan Problems: (1) Acute pancreatitis Assessment & Plan: Possible acute acalculous cholecystitis with acute pancreatitis US and CT noted labs reviewed GI input noted npo iv fluids trend labs bowel rest will follow with exams thank you Liver: Liver diameter of 14.7 cm. No visible parenchymal lesions. No intrahepatic biliary ductal dilatation. Gallbladder: Distended gallbladder with mild wall thickening up to 4.2 mm. No visible stones or sludge. No pericholecystic fluid. Common bile duct: Common bile duct diameter of 5.2 mm, within normal limits. Pancreas: Unremarkable as visualized. Aorta: Proximal abdominal aorta appears within normal limits. Mid and distal abdominal aorta are scattered by bowel gas. IMPRESSION: Distended gallbladder with mild wall thickening up to 4.2 mm. No visible stones or sludge. No pericholecystic fluid. Normal diameter of the common bile duct. (2) Gallstone pancreatitis Assessment & Plan: The pancreas is mildly prominent. There is infiltration of the peripancreatic fat. Fluid is seen tracking into the lesser sac, and along the mesenteric root and Gerota's fascia on the right. A small amount of fluid is also seen over the dome of the spleen. There is a cystic lesion in the pancreatic tail which measures 2 cm in diameter. No other organized fluid collection demonstrated. The pancreas enhances normally. The gallbladder is distended. Demonstrates a small amount of mural calcification and mural edema. No definite gallstones. The common bile duct is borderline dilated, measuring 7 mm diameter. No definite downstream obstructive lesion is demonstrated. The liver demonstrates multiple subcentimeter low-attenuation lesions which are too small to characterize. The spleen, adrenals, kidneys are unremarkable. No retroperitoneal or mesenteric mass or adenopathy. No pelvic mass or adenopathy. Lack of enteric contrast limits assessment of the GI tract. The colon demonstrates multiple diverticula. The appendix is normal. The small bowel is nondilated. No free intraperitoneal gas demonstrated. Distal esophagus is slightly fluid-filled. The stomach and duodenum are unremarkable. The included lung bases demonstrate bilateral posterior dependent atelectatic changes. The bones demonstrate degenerative spondylosis changes. Impression: Evidence of acute pancreatitis. No evidence of pancreatic necrosis 2 cm cystic lesion in the pancreatic tail. If there is been prior history of pancreatitis, this likely represents a pseudocyst. However, the possibility of pancreatic cystic neoplasm should also be considered and follow-up imaging is recommended Distended gallbladder without stones. Mild gallbladder wall edema. Likely reactive related to the the pancreatic inflammation, but the possibility of acute cholecystitis should also be considered. Borderline extra hepatic biliary ductal dilatation without downstream obstructive lesion demonstrated, probably age- related Subcentimeter low-attenuation lesions in the liver, too small to characterize, most likely benign simple cysts or bile hamartomas Colonic diverticula. No evidence of diverticulitis Fluid-filled esophagus, probably due to age-related dysmotility Basilar dependent pulmonary atelectatic changes and degenerative spondylosis changes incidentally noted Christiano Barger May 25, 2020 17:15
--- NOTE | 2020-05-25 19:27 | NUR ---
NURSE HAND-OFF: Important Events on Shift:[Start IV ATB, High bp, high WBC] Patient Status: [stable] Diet: [Clear liquid] Pending Orders: [] Pending Results/Labs:[] Pending MD notification:[] Latest Vital Signs: Temperature 98.7 , Pulse 94 , B/P 159 /70 , Respiratory Rate 18 , O2 SAT 93 , Room Air, O2 Flow Rate . Vital Sign Comment: [high bp] Latest Mast Fall Score: 75 Fall Risk: High Risk Safety Measures: Call light Within Reach, Bed Alarm Zone 1, Side Rails Side Rails x3, Bed position Low and Locked. Fall Precautions: Yellow Socks Door Sign Patient Fall Education Report given to [RONNA Caicedo].
--- NOTE | 2020-05-25 19:39 | NUR ---
nurse's notes: received patient asleep but easily arousable; admits to some pain in the lower abdomen; VS taken, noted slight elevation in temperature of 100.6; encouraged patient to increase fluid intake; otherwise no other concerns noted; bed at lowest position; call light easily within reach; reminded patient to call for help at all times; plan of care to be continued as discussed.
[2020-05-26] VITALS (8 sets, daily range): BP systolic 135–179; BP diastolic 65–98
[2020-05-26] MEDS: Meropenem 500 MG in NS 55 ML IVPB SCH ×3 (05:18→22:05)
[2020-05-26] MEDS: Hydromorphone 0.5mg/0.5ml inj IVP PRN (05:18)
--- NOTE | 2020-05-26 06:21 | NUR ---
NURSE HAND-OFF: No significant changes noted this shift. Pain managed well with ordered medications with good results. Kept NPO for MRI with contrast scheduled to be done today. VS taken and noted; BP WNL but had an episode of low grade fever of 100.1 but afebrile as of this time. Important Events on Shift: as stated above Patient Status: stable as of this time Diet: NPO for now Pending Orders: AML and MRI with contrast Pending Results/Labs:yes Pending MD notification:none Latest Vital Signs: Temperature 98.9 , Pulse 87 , B/P 148 /80 , Respiratory Rate 18 , O2 SAT 93 , Room Air, O2 Flow Rate . Vital Sign Comment: as stated Latest Mast Fall Score: 85 Fall Risk: High Risk Safety Measures: Call light Within Reach, Bed Alarm Zone 1, Side Rails Side Rails x3, Bed position Low and Locked. Fall Precautions: Yellow Socks Door Sign Patient Fall Education Report will be given to RONNA Hopper
[2020-05-26 07:01] LABS: HEMATOCRIT 38.5 % (37.0-47.0); HEMOGLOBIN 12.5 G/DL (12.0-16.0); MEAN CORPUSCULAR VOLUME 98 FL (80-99); PLATELET COUNT 180 K/UL (150-450); RED BLOOD COUNT 3.92 M/UL (4.20-5.40); WHITE BLOOD COUNT 19.3 K/UL (4.8-10.8)
--- NOTE | 2020-05-26 07:30 | NUR ---
NURSE NOTES: Received report from Marifer FRIEND. pt a/a/o laying in bed with no signs of distress or other issues at this time. IV on the right BONNER gauge#20 running NS @75ml/hr. no skin issues noted. pt is able to ambulate with staff assistance. call light within reach, bed in lowest position, side rales up x2. I will f/u as needed.
[2020-05-26 08:07] LABS: ALANINE AMINOTRANSFERASE 15 U/L (12-78); ALBUMIN 2.4 G/DL (3.4-5.0); ALBUMIN/GLOBULIN RATIO 0.6 (1.0-2.7); ALKALINE PHOSPHATASE 63 U/L (46-116); AMYLASE 72 U/L (25-115); ANION GAP 10 mmol/L (5-15); ASPARTATE AMINO TRANSFERASE 23 U/L (15-37); BLOOD UREA NITROGEN 15 mg/dL (7-18); CALCIUM 7.9 MG/DL (8.5-10.1); CARBON DIOXIDE 25 MMOL/L (21-32); CHLORIDE 108 MMOL/L (98-107); CREATININE 0.9 MG/DL (0.55-1.30); POTASSIUM 3.1 MMOL/L (3.5-5.1); SODIUM 142 MMOL/L (136-145)
--- NOTE | 2020-05-26 10:41 | Pulmonology Progress Note ---
Subjective ROS Limited/Unobtainable: Yes Interval Events: Seen by gastroenterology and surgery. Constitutional: Reports: no symptoms HEENT: Repors: no symptoms Respiratory: Reports: no symptoms Cardiovascular: Reports: no symptoms Gastrointestinal/Abdominal: Reports: nausea Genitourinary: Reports: no symptoms Neurologic: Reports: no symptoms Psychiatric: Reports: no symptoms Allergies: Coded Allergies: PENICILLINS (Unverified Allergy, Intermediate, 05/23/20) Per daughter, unknown reaction Objective Last 24 Hour Vital Signs Date Time Temp Pulse Resp B/P (MAP) Pulse Ox O2 Delivery O2 Flow Rate FiO2 05/26/20 04:00 98.9 87 18 148/80 (102) 93 05/25/20 23:59 98.3 95 16 147/77 (100) 93 05/25/20 21:00 Room Air 05/25/20 19:34 100.6 82 17 146/80 (102) 93 05/25/20 16:00 98.7 94 18 159/70 (99) 93 05/25/20 15:04 162/68 05/25/20 12:00 98.8 81 18 162/68 (99) 93 Intake and Output 05/25/20 05/26/20 19:00 07:00 Intake Total 1120 ml Balance 1120 ml Intake Oral 240 ml IV Total 880 ml # Voids 4 3 General Appearance: no acute distress HEENT: normocephalic Respiratory: chest wall non-tender, lungs clear Cardiovascular: normal peripheral pulses Abdomen: normal bowel sounds Microbiology Date/Time Source Procedure Growth Status 05/23/20 15:08 Nasopharynx SARS-CoV-2 RdRp Gene Assay - Final Complete Laboratory Tests 05/26/20 05:35: White Blood Count 19.3H, Red Blood Count 3.92L, Hemoglobin 12.5, Hematocrit 38.5, Mean Corpuscular Volume 98, Mean Corpuscular Hemoglobin 31.9H, Mean Corpuscular Hemoglobin Concent 32.5, Red Cell Distribution Width 13.0, Platelet Count 180, Mean Platelet Volume 7.1, Neutrophils (%) (Auto) , Lymphocytes (%) (Auto) , Monocytes (%) (Auto) , Eosinophils (%) (Auto) , Basophils (%) (Auto) , Differential Total Cells Counted 100, Neutrophils % (Manual) 93H, Lymphocytes % (Manual) 5L, Monocytes % (Manual) 2, Eosinophils % (Manual) 0, Basophils % (Manual) 0, Band Neutrophils 0, Platelet Estimate Adequate, Platelet Morphology Normal, Red Blood Cell Morphology Normal, Sodium Level 142, Potassium Level 3.1L , Chloride Level 108H, Carbon Dioxide Level 25, Anion Gap 10, Blood Urea Nitrogen 15, Creatinine 0.9, Estimat Glomerular Filtration Rate > 60, Glucose Level 119H, Calcium Level 7.9L, Total Bilirubin 1.0, Aspartate Amino Transf (AST/SGOT) 23, Alanine Aminotransferase (ALT/SGPT) 15, Alkaline Phosphatase 63, Total Protein 6.4, Albumin 2.4L, Globulin 4.0, Albumin/Globulin Ratio 0.6L, Amylase Level 72, Lipase 175, Immunoglobulin G [Pending], Immunoglobulin G1 [Pending], Immunoglobulin G2 [Pending], Immunoglobulin G3 [Pending], Immunoglobulin G4 [Pending] Current Medications Medications (Trade) Dose Ordered Sig/Solomon Route PRN Reason Start Time Stop Time Status Last Admin Dose Admin Acetaminophen (Tylenol) 650 mg Q6H PRN ORAL Temp >100.5 05/25/20 07:00 06/24/20 06:59 Clonidine HCl (Catapres Tab) 0.1 mg Q4H PRN ORAL For High Blood Pressure 05/24/20 12:00 08/22/20 11:59 05/25/20 15:04 Gadobutrol (Gadavist) 7.5 mmol NOW PRN IV Radiology Procedure 05/25/20 09:15 05/29/20 09:14 Hydromorphone HCl (Dilaudid) 0.5 mg Q4H PRN IVP Severe Pain (Pain Scale 7-10) 05/23/20 21:00 05/30/20 20:59 05/26/20 05:18 Meropenem 500 mg/ Sodium Chloride 55 ml @ 110 mls/hr EVERY 8 HOURS IVPB 05/25/20 14:00 05/30/20 13:59 05/26/20 05:18 Morphine Sulfate (Morphine Sulfate) 2 mg Q4H PRN IVP For Pain 05/23/20 16:30 05/30/20 16:29 05/23/20 16:26 Ondansetron HCl (Zofran) 4 mg Q6H PRN IVP Nausea & Vomiting 05/24/20 10:00 06/23/20 09:59 Sodium Chloride 1,000 ml @ 75 mls/hr [id number] IV 05/23/20 21:00 06/22/20 20:59 05/26/20 05:18 Assessment/Plan Assessment/Plan IMPRESSION: 1. Pancreatitis. 2. Possible pseudocyst. 3. Possible cholecystitis. 4. History of CVA. 5. Hyperglycemia. 6. Diabetes. 7. Hypertension. 8. Hypokalemia 9. persistent leucocytosis DISCUSSION: Continue antibiotics. Continue clear liquid diet MRCP today Continue IV fluids. Continue GI and DVT prophylaxis. Await follow-up consultations by gastroenterology and general surgery. Seen by ID More Landin Omar Syed MD May 26, 2020 10:41
--- NOTE | 2020-05-26 11:31 | General Progress Note ---
Subjective ROS Limited/Unobtainable: Yes Allergies: Coded Allergies: PENICILLINS (Unverified Allergy, Intermediate, 05/23/20) Per daughter, unknown reaction Objective Last 24 Hour Vital Signs Date Time Temp Pulse Resp B/P (MAP) Pulse Ox O2 Delivery O2 Flow Rate FiO2 05/26/20 09:00 Room Air 05/26/20 08:00 99.0 84 18 164/76 (105) 94 05/26/20 04:00 98.9 87 18 148/80 (102) 93 05/25/20 23:59 98.3 95 16 147/77 (100) 93 05/25/20 21:00 Room Air 05/25/20 19:34 100.6 82 17 146/80 (102) 93 05/25/20 16:00 98.7 94 18 159/70 (99) 93 05/25/20 15:04 162/68 05/25/20 12:00 98.8 81 18 162/68 (99) 93 Intake and Output 05/25/20 05/26/20 19:00 07:00 Intake Total 1120 ml Balance 1120 ml Intake Oral 240 ml IV Total 880 ml # Voids 4 3 Laboratory Tests 05/26/20 05:35: White Blood Count 19.3H, Red Blood Count 3.92L, Hemoglobin 12.5, Hematocrit 38.5, Mean Corpuscular Volume 98, Mean Corpuscular Hemoglobin 31.9H, Mean Corpuscular Hemoglobin Concent 32.5, Red Cell Distribution Width 13.0, Platelet Count 180, Mean Platelet Volume 7.1, Neutrophils (%) (Auto) , Lymphocytes (%) (Auto) , Monocytes (%) (Auto) , Eosinophils (%) (Auto) , Basophils (%) (Auto) , Differential Total Cells Counted 100, Neutrophils % (Manual) 93H, Lymphocytes % (Manual) 5L, Monocytes % (Manual) 2, Eosinophils % (Manual) 0, Basophils % (Manual) 0, Band Neutrophils 0, Platelet Estimate Adequate, Platelet Morphology Normal, Red Blood Cell Morphology Normal, Sodium Level 142, Potassium Level 3.1L , Chloride Level 108H, Carbon Dioxide Level 25, Anion Gap 10, Blood Urea Nitrogen 15, Creatinine 0.9, Estimat Glomerular Filtration Rate > 60, Glucose Level 119H, Calcium Level 7.9L, Total Bilirubin 1.0, Aspartate Amino Transf (AST/SGOT) 23, Alanine Aminotransferase (ALT/SGPT) 15, Alkaline Phosphatase 63, Total Protein 6.4, Albumin 2.4L, Globulin 4.0, Albumin/Globulin Ratio 0.6L, Amylase Level 72, Lipase 175, Immunoglobulin G [Pending], Immunoglobulin G1 [Pending], Immunoglobulin G2 [Pending], Immunoglobulin G3 [Pending], Immunoglobulin G4 [Pending] Height (Feet): 5 Height (Inches): 2.00 Weight (Pounds): 140 General Appearance: no apparent distress EENT: normal ENT inspection Neck: supple Cardiovascular: normal rate Respiratory/Chest: decreased breath sounds Abdomen: normal bowel sounds, non tender, soft Extremities: non-tender Assessment/Plan Problem List: (1) Acute pancreatitis ICD Codes: K85.90 - Acute pancreatitis without necrosis or infection, unspecified SNOMED: [id number] Assessment/Plan: ? cause for pancreatitis CT and us reviewed 2 cm ? pseudocyst vs cystic pancreatic lesion improving lipase advance diet MRI of abd IGG 4 repeat labs possible EUS Pablito Hall MD May 26, 2020 11:31
--- NOTE | 2020-05-26 11:42 | Infectious Diseases Prog Note ---
Assessment/Plan Assessment/Plan antibiotics : meropenem A 1. pancreatitis improving 2. pancreatic pseudocyst 3. ? cholecystitis 4. leucocytosis improving P 1. continue meropenem 2. will follow up cultures Subjective Constitutional: Denies: fever, chills Respiratory: Denies: shortness of breath, dry cough Gastrointestinal/Abdominal: Denies: nausea, vomiting, diarrhea Musculoskeletal: Reports: pain - decreased abdominal Allergies: Coded Allergies: PENICILLINS (Unverified Allergy, Intermediate, 05/23/20) Per daughter, unknown reaction Objective Last 24 Hour Vital Signs Date Time Temp Pulse Resp B/P (MAP) Pulse Ox O2 Delivery O2 Flow Rate FiO2 05/26/20 09:00 Room Air 05/26/20 08:00 99.0 84 18 164/76 (105) 94 05/26/20 04:00 98.9 87 18 148/80 (102) 93 05/25/20 23:59 98.3 95 16 147/77 (100) 93 05/25/20 21:00 Room Air 05/25/20 19:34 100.6 82 17 146/80 (102) 93 05/25/20 16:00 98.7 94 18 159/70 (99) 93 05/25/20 15:04 162/68 05/25/20 12:00 98.8 81 18 162/68 (99) 93 Height (Feet): 5 Height (Inches): 2.00 Weight (Pounds): 140 Respiratory/Chest: lungs clear Cardiovascular: normal rate, regular rhythm, no gallop/murmur Abdomen: soft, non tender Extremities: no edema Microbiology Date/Time Source Procedure Growth Status 05/23/20 15:08 Nasopharynx SARS-CoV-2 RdRp Gene Assay - Final Complete Laboratory Tests Test 05/26/20 05:35 White Blood Count 19.3 K/UL (4.8-10.8) H Red Blood Count 3.92 M/UL (4.20-5.40) L Hemoglobin 12.5 G/DL (12.0-16.0) Hematocrit 38.5 % (37.0-47.0) Mean Corpuscular Volume 98 FL (80-99) Mean Corpuscular Hemoglobin 31.9 PG (27.0-31.0) H Mean Corpuscular Hemoglobin Concent 32.5 G/DL (32.0-36.0) Red Cell Distribution Width 13.0 % (11.6-14.8) Platelet Count 180 K/UL (150-450) Mean Platelet Volume 7.1 FL (6.5-10.1) Neutrophils (%) (Auto) % (45.0-75.0) Lymphocytes (%) (Auto) % (20.0-45.0) Monocytes (%) (Auto) % (1.0-10.0) Eosinophils (%) (Auto) % (0.0-3.0) Basophils (%) (Auto) % (0.0-2.0) Differential Total Cells Counted 100 Neutrophils % (Manual) 93 % (45-75) H Lymphocytes % (Manual) 5 % (20-45) L Monocytes % (Manual) 2 % (1-10) Eosinophils % (Manual) 0 % (0-3) Basophils % (Manual) 0 % (0-2) Band Neutrophils 0 % (0-8) Platelet Estimate Adequate Platelet Morphology Normal Red Blood Cell Morphology Normal Sodium Level 142 MMOL/L (136-145) Potassium Level 3.1 MMOL/L (3.5-5.1) L Chloride Level 108 MMOL/L (98-107) H Carbon Dioxide Level 25 MMOL/L (21-32) Anion Gap 10 mmol/L (5-15) Blood Urea Nitrogen 15 mg/dL (7-18) Creatinine 0.9 MG/DL (0.55-1.30) Estimat Glomerular Filtration Rate > 60 mL/min (>60) Glucose Level 119 MG/DL (74-106) H Calcium Level 7.9 MG/DL (8.5-10.1) L Total Bilirubin 1.0 MG/DL (0.2-1.0) Aspartate Amino Transf (AST/SGOT) 23 U/L (15-37) Alanine Aminotransferase (ALT/SGPT) 15 U/L (12-78) Alkaline Phosphatase 63 U/L (46-116) Total Protein 6.4 G/DL (6.4-8.2) Albumin 2.4 G/DL (3.4-5.0) L Globulin 4.0 g/dL Albumin/Globulin Ratio 0.6 (1.0-2.7) L Amylase Level 72 U/L (25-115) Lipase 175 U/L (73-393) Immunoglobulin G Pending Immunoglobulin G1 Pending Immunoglobulin G2 Pending Immunoglobulin G3 Pending Immunoglobulin G4 Pending Current Medications Medications (Trade) Dose Ordered Sig/Solomon Route PRN Reason Start Time Stop Time Status Last Admin Dose Admin Acetaminophen (Tylenol) 650 mg Q6H PRN ORAL Temp >100.5 05/25/20 07:00 06/24/20 06:59 Clonidine HCl (Catapres Tab) 0.1 mg Q4H PRN ORAL For High Blood Pressure 05/24/20 12:00 08/22/20 11:59 05/25/20 15:04 Gadobutrol (Gadavist) 7.5 mmol NOW PRN IV Radiology Procedure 05/25/20 09:15 05/29/20 09:14 Hydromorphone HCl (Dilaudid) 0.5 mg Q4H PRN IVP Severe Pain (Pain Scale 7-10) 05/23/20 21:00 05/30/20 20:59 05/26/20 05:18 Meropenem 500 mg/ Sodium Chloride 55 ml @ 110 mls/hr EVERY 8 HOURS IVPB 05/25/20 14:00 05/30/20 13:59 05/26/20 05:18 Morphine Sulfate (Morphine Sulfate) 2 mg Q4H PRN IVP For Pain 05/23/20 16:30 05/30/20 16:29 05/23/20 16:26 Ondansetron HCl (Zofran) 4 mg Q6H PRN IVP Nausea & Vomiting 05/24/20 10:00 06/23/20 09:59 Sodium Chloride 1,000 ml @ 75 mls/hr [id number] IV 05/23/20 21:00 06/22/20 20:59 05/26/20 05:18 Albino Yeh MD May 26, 2020 11:42
--- NOTE | 2020-05-26 12:00 | NUR ---
NURSE NOTES: during VS: BP: 171/83, HR: 87, SpO2: 90%. Called RT to start O2. also given clonidine x1 as order by MD for BP. Will reassess BP. I will f/u as needed.
--- NOTE | 2020-05-26 12:05 | NUR ---
INSURANCE CLINICALS/REVIEW FAXED TO [facility] [phone]
--- NOTE | 2020-05-26 12:30 | NUR ---
NURSE NOTES: pt out of the floor for abd MRI. pt left with no signs of distress or other issues at this time. I will f/u as needed.
--- NOTE | 2020-05-26 13:00 | NUR ---
NURSE NOTES: patient back to the floor from MRI with no signs of distress however pt results technician MRI was unable to be competed since the patient was not able to tolerate procedure. RN called Dr. Ozuna to inform. I will f/u as needed.
--- NOTE | 2020-05-26 13:23 | NUR ---
CASE MANAGEMENT:REVIEW SI;GALLSTONE PANCREATITIS. LEUKOCYTOSIS. CHOLECYSTITIS. PANCREATIC PSEUDOCYST. 100.6 95 18 171/83 90% ON RA WBC 19.3 K+ 3.1 CA 7.9 ALB 2.4 IS;MEROPENEM IV Q8 CLONIDINE PO DILAUDID IV IVF NS @ 75 ML/HR ABC MRI MED SURG STATUS DCP;FROM HOME
--- NOTE | 2020-05-26 17:00 | NUR ---
NURSE NOTES: Called Dr. Lawson to inform of patient high BP during the day (pls see VS chart). per MD to d/c IVF, to give lasix IV x1. RN will carry on orders. 16:00 BP: 179/94, hr:92 after given clonidine BP: 157/65.
[2020-05-26] MEDS ORDERED: Albuterol/Ipratropium 3ml neb HHN PRN (18:00)
--- NOTE | 2020-05-26 18:57 | Surgery Progress Note ---
Surgery Progress Note Subjective Symptoms: improved, pain absent Additional Comments lip / cata resolved labs improved pending MRCP Objective Last 24 Hour Vital Signs Date Time Temp Pulse Resp B/P (MAP) Pulse Ox O2 Delivery O2 Flow Rate FiO2 05/26/20 18:20 94 18 95 Room Air 21 05/26/20 18:19 91 18 99 Room Air 21 94 18 95 05/26/20 17:00 99.8 87 18 157/65 (95) 94 05/26/20 16:58 179/94 05/26/20 16:00 99.8 87 18 179/94 (122) 95 05/26/20 13:00 99.8 84 18 135/73 (93) 97 05/26/20 12:15 171/83 05/26/20 12:00 99.8 87 18 171/83 (112) 90 05/26/20 09:00 Room Air 05/26/20 08:00 99.0 84 18 164/76 (105) 94 05/26/20 04:00 98.9 87 18 148/80 (102) 93 05/25/20 23:59 98.3 95 16 147/77 (100) 93 05/25/20 21:00 Room Air 05/25/20 19:34 100.6 82 17 146/80 (102) 93 I&O Intake and Output 05/25/20 05/26/20 19:00 07:00 Intake Total 1120 ml Balance 1120 ml Intake Oral 240 ml IV Total 880 ml # Voids 4 3 Cardiovascular: RSR Respiratory: clear Abdomen: soft, non-tender, present bowel sounds, non-distended Extremities: no edema, no tenderness, no cyanosis Laboratory Tests Test 05/26/20 05:35 White Blood Count 19.3 K/UL (4.8-10.8) H Red Blood Count 3.92 M/UL (4.20-5.40) L Hemoglobin 12.5 G/DL (12.0-16.0) Hematocrit 38.5 % (37.0-47.0) Mean Corpuscular Volume 98 FL (80-99) Mean Corpuscular Hemoglobin 31.9 PG (27.0-31.0) H Mean Corpuscular Hemoglobin Concent 32.5 G/DL (32.0-36.0) Red Cell Distribution Width 13.0 % (11.6-14.8) Platelet Count 180 K/UL (150-450) Mean Platelet Volume 7.1 FL (6.5-10.1) Neutrophils (%) (Auto) % (45.0-75.0) Lymphocytes (%) (Auto) % (20.0-45.0) Monocytes (%) (Auto) % (1.0-10.0) Eosinophils (%) (Auto) % (0.0-3.0) Basophils (%) (Auto) % (0.0-2.0) Differential Total Cells Counted 100 Neutrophils % (Manual) 93 % (45-75) H Lymphocytes % (Manual) 5 % (20-45) L Monocytes % (Manual) 2 % (1-10) Eosinophils % (Manual) 0 % (0-3) Basophils % (Manual) 0 % (0-2) Band Neutrophils 0 % (0-8) Platelet Estimate Adequate Platelet Morphology Normal Red Blood Cell Morphology Normal Sodium Level 142 MMOL/L (136-145) Potassium Level 3.1 MMOL/L (3.5-5.1) L Chloride Level 108 MMOL/L (98-107) H Carbon Dioxide Level 25 MMOL/L (21-32) Anion Gap 10 mmol/L (5-15) Blood Urea Nitrogen 15 mg/dL (7-18) Creatinine 0.9 MG/DL (0.55-1.30) Estimat Glomerular Filtration Rate > 60 mL/min (>60) Glucose Level 119 MG/DL (74-106) H Calcium Level 7.9 MG/DL (8.5-10.1) L Total Bilirubin 1.0 MG/DL (0.2-1.0) Aspartate Amino Transf (AST/SGOT) 23 U/L (15-37) Alanine Aminotransferase (ALT/SGPT) 15 U/L (12-78) Alkaline Phosphatase 63 U/L (46-116) Total Protein 6.4 G/DL (6.4-8.2) Albumin 2.4 G/DL (3.4-5.0) L Globulin 4.0 g/dL Albumin/Globulin Ratio 0.6 (1.0-2.7) L Amylase Level 72 U/L (25-115) Lipase 175 U/L (73-393) Immunoglobulin G Pending Immunoglobulin G1 Pending Immunoglobulin G2 Pending Immunoglobulin G3 Pending Immunoglobulin G4 Pending Plan Problems: (1) Acute pancreatitis Assessment & Plan: Possible acute acalculous cholecystitis with acute pancrea titis US and CT noted labs reviewed GI input noted npo iv fluids trend labs bowel rest will follow with exams thank you Liver: Liver diameter of 14.7 cm. No visible parenchymal lesions. No intrahepatic biliary ductal dilatation. Gallbladder: Distended gallbladder with mild wall thickening up to 4.2 mm. No visible stones or sludge. No pericholecystic fluid. Common bile duct: Common bile duct diameter of 5.2 mm, within normal limits. Pancreas: Unremarkable as visualized. Aorta: Proximal abdominal aorta appears within normal limits. Mid and distal abdominal aorta are scattered by bowel gas. IMPRESSION: Distended gallbladder with mild wall thickening up to 4.2 mm. No visible stones or sludge. No pericholecystic fluid. Normal diameter of the common bile duct. (2) Gallstone pancreatitis Assessment & Plan: The pancreas is mildly prominent. There is infiltration of the peripancreatic fat. Fluid is seen tracking into the lesser sac, and along the mesenteric root and Gerota's fascia on the right. A small amount of fluid is also seen over the dome of the spleen. There is a cystic lesion in the pancreatic tail which measures 2 cm in diameter. No other organized fluid collection demonstrated. The pancreas enhances normally. The gallbladder is distended. Demonstrates a small amount of mural calcification and mural edema. No definite gallstones. The common bile duct is borderline dilated, measuring 7 mm diameter. No definite downstream obstructive lesion is demonstrated. The liver demonstrates multiple subcentimeter low-attenuation lesions which are too small to characterize. The spleen, adrenals, kidneys are unremarkable. No retroperitoneal or mesenteric mass or adenopathy. No pelvic mass or adenopathy. Lack of enteric contrast limits assessment of the GI tract. The colon demonstrates multiple diverticula. The appendix is normal. The small bowel is nondilated. No free intraperitoneal gas demonstrated. Distal esophagus is slightly fluid-filled. The stomach and duodenum are unremarkable. The included lung bases demonstrate bilateral posterior dependent atelectatic changes. The bones demonstrate degenerative spondylosis changes. Impression: Evidence of acute pancreatitis. No evidence of pancreatic necrosis 2 cm cystic lesion in the pancreatic tail. If there is been prior history of pancreatitis, this likely represents a pseudocyst. However, the possibility of pancreatic cystic neoplasm should also be considered and follow-up imaging is recommended Distended gallbladder without stones. Mild gallbladder wall edema. Likely reactive related to the the pancreatic inflammation, but the possibility of acute cholecystitis should also be considered. Borderline extra hepatic biliary ductal dilatation without downstream obstructive lesion demonstrated, probably age- related Subcentimeter low-attenuation lesions in the liver, too small to characterize, most likely benign simple cysts or bile hamartomas Colonic diverticula. No evidence of diverticulitis Fluid-filled esophagus, probably due to age-related dysmotility Basilar dependent pulmonary atelectatic changes and degenerative spondylosis changes incidentally noted Christiano Barger May 26, 2020 18:57
--- NOTE | 2020-05-26 19:15 | NUR ---
NURSE HAND-OFF: Important Events on Shift:[] Patient Status: stable/ full code. Diet: CCHO medium diet. Pending Orders: [] Pending Results/Labs:am labs Pending MD notification:[] Latest Vital Signs: Temperature 99.8 , Pulse 94 , B/P 157 /65 , Respiratory Rate 18 , O2 SAT 95 , Room Air, O2 Flow Rate . Vital Sign Comment: BP has been elevated throughout my shift on the 160's-180's. clonidine given x2. Latest Mast Fall Score: 85 Fall Risk: High Risk Safety Measures: Call light Within Reach, Bed Alarm Zone 1, Side Rails Side Rails x3, Bed position Low and Locked. Fall Precautions: ambulate with staff supervision Yellow Socks Door Sign Patient Fall Education Report given to Report given to Basil FRIEND, pt in stable condition. - pt is able to ambulate with assistance - ABD MRI incomplete, pt was not able to tolerate procedure. (Dr. Lawson and Dr. Monahan are aware) - Lasix IVP given x1 - started on HHN tx due to wheezing.
--- NOTE | 2020-05-26 19:57 | NUR ---
NURSE NOTES: Received report from Omero FRIEND. Patient in stable condition. Seen sleeping in bed. No apparent distress
[2020-05-27 04:00] VITALS: BP 144/91
[2020-05-27] MEDS: Meropenem 500 MG in NS 55 ML IVPB SCH ×3 (05:21→22:38)
--- NOTE | 2020-05-27 06:30 | NUR ---
NURSE HAND-OFF: Important Events on Shift:Patient ambulated with standby assist to bathroom. no s/s of resp distress nor wheezing. Patient denies any pain throughout the shift. Patient Status: Stable Diet: CCHO medium Pending Orders: pending MRI Abd with contrast, (patient did not tolerate procedure yesterday d/t cannot lay down ) Pending Results/Labs:[] Pending MD notification:[] Latest Vital Signs: Temperature 97.9 , Pulse 80 , B/P 144 /91 , Respiratory Rate 18 , O2 SAT 94 , Room Air, O2 Flow Rate . Vital Sign Comment: [] Latest Mast Fall Score: 85 Fall Risk: High Risk Safety Measures: Call light Within Reach, Bed Alarm Zone 1, Side Rails Side Rails x3, Bed position Low and Locked. Fall Precautions: Yellow Socks Door Sign Patient Fall Education
--- NOTE | 2020-05-27 07:30 | NUR ---
NURSE NOTES: Patient is in bed awake and able to verbalize needs. Stable. SOB noted. Patient is high fowlers. Patient instructed to use call light for assistance, verbalized understanding. Patient is in bed in locked and lowest position with call light within reach. All needs met at this time. Will continue to monitor.
[2020-05-27 07:32] LABS: HEMATOCRIT 39.9 % (37.0-47.0); HEMOGLOBIN 13.3 G/DL (12.0-16.0); MEAN CORPUSCULAR VOLUME 96 FL (80-99); PLATELET COUNT 218 K/UL (150-450); RED BLOOD COUNT 4.14 M/UL (4.20-5.40); RED CELL DISTRIBUTION WIDTH 12.6 % (11.6-14.8); WHITE BLOOD COUNT 18.2 K/UL (4.8-10.8)
--- NOTE | 2020-05-27 07:33 | NUR ---
NURSE NOTES: Report given to Erica FRIEND
[2020-05-27 07:55] LABS: ALANINE AMINOTRANSFERASE 105 U/L (12-78); ALBUMIN 2.5 G/DL (3.4-5.0); ALBUMIN/GLOBULIN RATIO 0.6 (1.0-2.7); ALKALINE PHOSPHATASE 96 U/L (46-116); ANION GAP 11 mmol/L (5-15); ASPARTATE AMINO TRANSFERASE 132 U/L (15-37); BILIRUBIN,DIRECT 0.5 MG/DL (0.0-0.3); BILIRUBIN,TOTAL 1.4 MG/DL (0.2-1.0); BLOOD UREA NITROGEN 15 mg/dL (7-18); CALCIUM 8.1 MG/DL (8.5-10.1); CARBON DIOXIDE 26 MMOL/L (21-32); CHLORIDE 103 MMOL/L (98-107); CREATININE 0.9 MG/DL (0.55-1.30); POTASSIUM 2.8 MMOL/L (3.5-5.1); SODIUM 139 MMOL/L (136-145)
[2020-05-27 08:00] VITALS: BP 171/84
[2020-05-27] MEDS ORDERED: Miralax 17gm pkt ORAL PRN (09:30)
--- NOTE | 2020-05-27 10:02 | Pulmonology Progress Note ---
Subjective ROS Limited/Unobtainable: Yes Interval Events: Seen by gastroenterology and surgery. Constitutional: Denies: fever, chills HEENT: Repors: no symptoms Respiratory: Reports: no symptoms Cardiovascular: Reports: no symptoms Gastrointestinal/Abdominal: Denies: nausea, vomiting, diarrhea Genitourinary: Reports: no symptoms Neurologic: Reports: no symptoms Psychiatric: Reports: no symptoms Musculoskeletal: Reports: pain - decreased abdominal Allergies: Coded Allergies: PENICILLINS (Unverified Allergy, Intermediate, 05/23/20) Per daughter, unknown reaction Objective Last 24 Hour Vital Signs Date Time Temp Pulse Resp B/P (MAP) Pulse Ox O2 Delivery O2 Flow Rate FiO2 05/27/20 09:00 Room Air 05/27/20 08:44 171/84 05/27/20 08:00 97.8 76 18 171/84 (113) 94 05/27/20 04:00 97.9 80 18 144/91 (108) 94 05/26/20 23:43 99.6 78 18 155/72 (99) 94 05/26/20 21:00 Room Air 05/26/20 20:00 99.2 87 18 146/98 (114) 95 05/26/20 18:20 94 18 95 Room Air 21 05/26/20 18:19 91 18 99 Room Air 21 94 18 95 05/26/20 17:00 99.8 87 18 157/65 (95) 94 05/26/20 16:58 179/94 05/26/20 16:00 99.8 87 18 179/94 (122) 95 05/26/20 13:00 99.8 84 18 135/73 (93) 97 05/26/20 12:15 171/83 05/26/20 12:00 99.8 87 18 171/83 (112) 90 Intake and Output 05/26/20 05/27/20 19:00 07:00 Intake Total 500 ml 120 ml Balance 500 ml 120 ml Intake Oral 500 ml 120 ml # Voids 5 6 General Appearance: no acute distress HEENT: normocephalic Respiratory: chest wall non-tender, lungs clear Cardiovascular: normal peripheral pulses Abdomen: normal bowel sounds Laboratory Tests 05/27/20 07:18: White Blood Count 18.2H, Red Blood Count 4.14L, Hemoglobin 13.3, Hematocrit 39.9, Mean Corpuscular Volume 96, Mean Corpuscular Hemoglobin 32.0H, Mean Corpuscular Hemoglobin Concent 33.3, Red Cell Distribution Width 12.6, Platelet Count 218, Mean Platelet Volume 7.3, Neutrophils (%) (Auto) , Lymphocytes (%) (Auto) , Monocytes (%) (Auto) , Eosinophils (%) (Auto) , Basophils (%) (Auto) , Neutrophils % (Manual) [Pending], Lymphocytes % (Manual) [Pending], Platelet Estimate [Pending], Platelet Morphology [Pending], Sodium Level 139, Potassium Level 2.8L, Chloride Level 103, Carbon Dioxide Level 26, Anion Gap 11, Blood Urea Nitrogen 15, Creatinine 0.9, Estimat Glomerular Filtration Rate > 60, Glucose Level 135H, Calcium Level 8.1L, Total Bilirubin 1.4H, Direct Bilirubin 0.5H, Aspartate Amino Transf (AST/SGOT) 132H, Alanine Aminotransferase (ALT/SGPT) 105H, Alkaline Phosphatase 96, Total Protein 6.9, Albumin 2.5L, Gl obulin 4.4, Albumin/Globulin Ratio 0.6L, Amylase Level 32, Lipase 72L Current Medications Medications (Trade) Dose Ordered Sig/Solomon Route PRN Reason Start Time Stop Time Status Last Admin Dose Admin Acetaminophen (Tylenol) 650 mg Q6H PRN ORAL Temp >100.5 05/25/20 07:00 06/24/20 06:59 Albuterol/ Ipratropium (Albuterol/ Ipratropium) 3 ml Q6H PRN HHN Shortness of Breath 05/26/20 18:00 05/31/20 17:59 05/26/20 18:09 Clonidine HCl (Catapres Tab) 0.1 mg Q4H PRN ORAL For High Blood Pressure 05/24/20 12:00 08/22/20 11:59 05/27/20 08:44 Gadobutrol (Gadavist) 7.5 mmol NOW PRN IV Radiology Procedure 05/25/20 09:15 05/29/20 09:14 Hydromorphone HCl (Dilaudid) 0.5 mg Q4H PRN IVP Severe Pain (Pain Scale 7-10) 05/23/20 21:00 05/30/20 20:59 05/26/20 05:18 Meropenem 500 mg/ Sodium Chloride 55 ml @ 110 mls/hr EVERY 8 HOURS IVPB 05/25/20 14:00 05/30/20 13:59 05/27/20 05:21 Morphine Sulfate (Morphine Sulfate) 2 mg Q4H PRN IVP For Pain 05/23/20 16:30 05/30/20 16:29 05/23/20 16:26 Ondansetron HCl (Zofran) 4 mg Q6H PRN IVP Nausea & Vomiting 05/24/20 10:00 06/23/20 09:59 Polyethylene Glycol (Miralax) 17 gm DAILY PRN ORAL Constipation 05/27/20 09:30 06/26/20 09:29 05/27/20 09:32 Potassium Chloride 100 ml @ 100 mls/hr Q1HR IVPB 05/27/20 10:00 05/27/20 13:59 05/27/20 09:27 Assessment/Plan Assessment/Plan IMPRESSION: 1. Pancreatitis. 2. Possible pseudocyst. 3. Possible cholecystitis. 4. History of CVA. 5. Hyperglycemia. 6. Diabetes. 7. Hypertension. 8. Hypokalemia 9. persistent leucocytosis DISCUSSION: Continue antibiotics. Continue and advance diet MRCP partly done; remainder refused by pt Continue IV fluids. Continue GI and DVT prophylaxis. Correct/replace K Check labs in AM Continue abx More Landin Omar Syed MD May 27, 2020 10:02
--- NOTE | 2020-05-27 11:44 | Infectious Diseases Prog Note ---
Assessment/Plan Assessment/Plan antibiotics : meropenem A 1. pancreatitis improving 2. pancreatic pseudocyst 3. ? cholecystitis 4. leucocytosis improving P 1. continue meropenem 2. will follow up cultures Subjective Constitutional: Denies: fever, chills Respiratory: Denies: shortness of breath, dry cough Gastrointestinal/Abdominal: Denies: nausea, vomiting, diarrhea Musculoskeletal: Reports: pain - in abdomen Allergies: Coded Allergies: PENICILLINS (Unverified Allergy, Intermediate, 05/23/20) Per daughter, unknown reaction Objective Last 24 Hour Vital Signs Date Time Temp Pulse Resp B/P (MAP) Pulse Ox O2 Delivery O2 Flow Rate FiO2 05/27/20 09:00 Room Air 05/27/20 08:44 171/84 05/27/20 08:00 97.8 76 18 171/84 (113) 94 05/27/20 04:00 97.9 80 18 144/91 (108) 94 05/26/20 23:43 99.6 78 18 155/72 (99) 94 05/26/20 21:00 Room Air 05/26/20 20:00 99.2 87 18 146/98 (114) 95 05/26/20 18:20 94 18 95 Room Air 21 05/26/20 18:19 91 18 99 Room Air 21 94 18 95 05/26/20 17:00 99.8 87 18 157/65 (95) 94 05/26/20 16:58 179/94 05/26/20 16:00 99.8 87 18 179/94 (122) 95 05/26/20 13:00 99.8 84 18 135/73 (93) 97 05/26/20 12:15 171/83 05/26/20 12:00 99.8 87 18 171/83 (112) 90 Height (Feet): 5 Height (Inches): 2.00 Weight (Pounds): 140 Respiratory/Chest: lungs clear Cardiovascular: normal rate, regular rhythm, no gallop/murmur Abdomen: tender Extremities: no edema Laboratory Tests Test 05/27/20 07:18 White Blood Count 18.2 K/UL (4.8-10.8) H Red Blood Count 4.14 M/UL (4.20-5.40) L Hemoglobin 13.3 G/DL (12.0-16.0) Hematocrit 39.9 % (37.0-47.0) Mean Corpuscular Volume 96 FL (80-99) Mean Corpuscular Hemoglobin 32.0 PG (27.0-31.0) H Mean Corpuscular Hemoglobin Concent 33.3 G/DL (32.0-36.0) Red Cell Distribution Width 12.6 % (11.6-14.8) Platelet Count 218 K/UL (150-450) Mean Platelet Volume 7.3 FL (6.5-10.1) Neutrophils (%) (Auto) % (45.0-75.0) Lymphocytes (%) (Auto) % (20.0-45.0) Monocytes (%) (Auto) % (1.0-10.0) Eosinophils (%) (Auto) % (0.0-3.0) Basophils (%) (Auto) % (0.0-2.0) Differential Total Cells Counted 100 Neutrophils % (Manual) 89 % (45-75) H Lymphocytes % (Manual) 7 % (20-45) L Monocytes % (Manual) 4 % (1-10) Eosinophils % (Manual) 0 % (0-3) Basophils % (Manual) 0 % (0-2) Band Neutrophils 0 % (0-8) Platelet Estimate Adequate Platelet Morphology Normal Macrocytosis 1+ Sodium Level 139 MMOL/L (136-145) Potassium Level 2.8 MMOL/L (3.5-5.1) L Chloride Level 103 MMOL/L (98-107) Carbon Dioxide Level 26 MMOL/L (21-32) Anion Gap 11 mmol/L (5-15) Blood Urea Nitrogen 15 mg/dL (7-18) Creatinine 0.9 MG/DL (0.55-1.30) Estimat Glomerular Filtration Rate > 60 mL/min (>60) Glucose Level 135 MG/DL (74-106) H Calcium Level 8.1 MG/DL (8.5-10.1) L Total Bilirubin 1.4 MG/DL (0.2-1.0) H Direct Bilirubin 0.5 MG/DL (0.0-0.3) H Aspartate Amino Transf (AST/SGOT) 132 U/L (15-37) H Alanine Aminotransferase (ALT/SGPT) 105 U/L (12-78) H Alkaline Phosphatase 96 U/L (46-116) Total Protein 6.9 G/DL (6.4-8.2) Albumin 2.5 G/DL (3.4-5.0) L Globulin 4.4 g/dL Albumin/Globulin Ratio 0.6 (1.0-2.7) L Amylase Level 32 U/L (25-115) Lipase 72 U/L (73-393) L Current Medications Medications (Trade) Dose Ordered Sig/Solomon Route PRN Reason Start Time Stop Time Status Last Admin Dose Admin Acetaminophen (Tylenol) 650 mg Q6H PRN ORAL Temp >100.5 05/25/20 07:00 06/24/20 06:59 Albuterol/ Ipratropium (Albuterol/ Ipratropium) 3 ml Q6H PRN HHN Shortness of Breath 05/26/20 18:00 05/31/20 17:59 05/26/20 18:09 Clonidine HCl (Catapres Tab) 0.1 mg Q4H PRN ORAL For High Blood Pressure 05/24/20 12:00 08/22/20 11:59 05/27/20 08:44 Gadobutrol (Gadavist) 7.5 mmol NOW PRN IV Radiology Procedure 05/25/20 09:15 05/29/20 09:14 Hydromorphone HCl (Dilaudid) 0.5 mg Q4H PRN IVP Severe Pain (Pain Scale 7-10) 05/23/20 21:00 05/30/20 20:59 05/26/20 05:18 Meropenem 500 mg/ Sodium Chloride 55 ml @ 110 mls/hr EVERY 8 HOURS IVPB 05/25/20 14:00 05/30/20 13:59 05/27/20 05:21 Morphine Sulfate (Morphine Sulfate) 2 mg Q4H PRN IVP For Pain 05/23/20 16:30 05/30/20 16:29 05/23/20 16:26 Ondansetron HCl (Zofran) 4 mg Q6H PRN IVP Nausea & Vomiting 05/24/20 10:00 06/23/20 09:59 Polyethylene Glycol (Miralax) 17 gm DAILY PRN ORAL Constipation 05/27/20 09:30 06/26/20 09:29 05/27/20 09:32 Potassium Chloride 100 ml @ 100 mls/hr Q1HR IVPB 05/27/20 10:00 05/27/20 13:59 05/27/20 10:36 Albino Yeh MD May 27, 2020 11:44
[2020-05-27 12:00] VITALS: BP 178/87
--- NOTE | 2020-05-27 13:45 | General Progress Note ---
Subjective ROS Limited/Unobtainable: Yes Allergies: Coded Allergies: PENICILLINS (Unverified Allergy, Intermediate, 05/23/20) Per daughter, unknown reaction Objective Last 24 Hour Vital Signs Date Time Temp Pulse Resp B/P (MAP) Pulse Ox O2 Delivery O2 Flow Rate FiO2 05/27/20 12:30 178/87 05/27/20 12:00 98.8 79 18 178/87 (117) 95 05/27/20 09:00 Room Air 05/27/20 08:44 171/84 05/27/20 08:00 97.8 76 18 171/84 (113) 94 05/27/20 04:00 97.9 80 18 144/91 (108) 94 05/26/20 23:43 99.6 78 18 155/72 (99) 94 05/26/20 21:00 Room Air 05/26/20 20:00 99.2 87 18 146/98 (114) 95 05/26/20 18:20 94 18 95 Room Air 21 05/26/20 18:19 91 18 99 Room Air 21 94 18 95 05/26/20 17:00 99.8 87 18 157/65 (95) 94 05/26/20 16:58 179/94 05/26/20 16:00 99.8 87 18 179/94 (122) 95 Intake and Output 05/26/20 05/27/20 19:00 07:00 Intake Total 500 ml 120 ml Balance 500 ml 120 ml Intake Oral 500 ml 120 ml # Voids 5 6 Laboratory Tests 05/27/20 07:18: White Blood Count 18.2H, Red Blood Count 4.14L, Hemoglobin 13.3, Hematocrit 39.9, Mean Corpuscular Volume 96, Mean Corpuscular Hemoglobin 32.0H, Mean Corpu scular Hemoglobin Concent 33.3, Red Cell Distribution Width 12.6, Platelet Count 218, Mean Platelet Volume 7.3, Neutrophils (%) (Auto) , Lymphocytes (%) (Auto) , Monocytes (%) (Auto) , Eosinophils (%) (Auto) , Basophils (%) (Auto) , Differential Total Cells Counted 100, Neutrophils % (Manual) 89H, Lymphocytes % (Manual) 7L, Monocytes % (Manual) 4, Eosinophils % (Manual) 0, Basophils % (Manual) 0, Band Neutrophils 0, Platelet Estimate Adequate, Platelet Morphology Normal, Macrocytosis 1+, Sodium Level 139, Potassium Level 2.8L, Chloride Level 103, Carbon Dioxide Level 26, Anion Gap 11, Blood Urea Nitrogen 15, Creatinine 0.9, Estimat Glomerular Filtration Rate > 60, Glucose Level 135H, Calcium Level 8.1L, Total Bilirubin 1.4H, Direct Bilirubin 0.5H, Aspartate Amino Transf (AST/SGOT) 132H, Alanine Aminotransferase (ALT/SGPT) 105H, Alkaline Phosphatase 96, Total Protein 6.9, Albumin 2.5L, Globulin 4.4, Albumin/Globulin Ratio 0.6L, Amylase Level 32, Lipase 72L Height (Feet): 5 Height (Inches): 2.00 Weight (Pounds): 140 General Appearance: alert EENT: normal ENT inspection Neck: supple Cardiovascular: normal rate Respiratory/Chest: lungs clear Abdomen: normal bowel sounds, non tender, soft Extremities: non-tender Assessment/Plan Problem List: (1) Acute pancreatitis ICD Codes: K85.90 - Acute pancreatitis without necrosis or infection, unspecified SNOMED: [id number] Assessment/Plan: ? cause for pancreatitis CT and us reviewed 2 cm ? pseudocyst vs cystic pancreatic lesion improving lipase reg diet MRI of abd>>>patient could not tolerate EUS for tomorrow CA 19-9 IGG 4 repeat labs Pablito Hall MD May 27, 2020 13:45
--- NOTE | 2020-05-27 15:00 | NUR ---
NURSE NOTES: Dr. Hall is at bedside explaining updated plan of care to patient. Patient is agreeable to procedures but is unable to sign consents at this time because her hand is in pain. Patient stated that she will sign the consents later. Will attempt later.
--- NOTE | 2020-05-27 15:16 | Surgery Progress Note ---
Surgery Progress Note Subjective Symptoms: pain decreased Additional Comments lft's elevated again cata/lip nml wbc improved could not tolerate mrcp plan eus tomorrow Objective Last 24 Hour Vital Signs Date Time Temp Pulse Resp B/P (MAP) Pulse Ox O2 Delivery O2 Flow Rate FiO2 05/27/20 12:30 178/87 05/27/20 12:00 98.8 79 18 178/87 (117) 95 05/27/20 09:00 Room Air 05/27/20 08:44 171/84 05/27/20 08:00 97.8 76 18 171/84 (113) 94 05/27/20 04:00 97.9 80 18 144/91 (108) 94 05/26/20 23:43 99.6 78 18 155/72 (99) 94 05/26/20 21:00 Room Air 05/26/20 20:00 99.2 87 18 146/98 (114) 95 05/26/20 18:20 94 18 95 Room Air 21 05/26/20 18:19 91 18 99 Room Air 21 94 18 95 05/26/20 17:00 99.8 87 18 157/65 (95) 94 05/26/20 16:58 179/94 05/26/20 16:00 99.8 87 18 179/94 (122) 95 I&O Intake and Output 05/26/20 05/27/20 19:00 07:00 Intake Total 500 ml 120 ml Balance 500 ml 120 ml Intake Oral 500 ml 120 ml # Voids 5 6 Cardiovascular: RSR Respiratory: clear Abdomen: soft, distended, non-tender, present bowel sounds, non-distended Extremities: no edema, no tenderness, no cyanosis Laboratory Tests Test 05/27/20 07:18 White Blood Count 18.2 K/UL (4.8-10.8) H Red Blood Count 4.14 M/UL (4.20-5.40) L Hemoglobin 13.3 G/DL (12.0-16.0) Hematocrit 39.9 % (37.0-47.0) Mean Corpuscular Volume 96 FL (80-99) Mean Corpuscular Hemoglobin 32.0 PG (27.0-31.0) H Mean Corpuscular Hemoglobin Concent 33.3 G/DL (32.0-36.0) Red Cell Distribution Width 12.6 % (11.6-14.8) Platelet Count 218 K/UL (150-450) Mean Platelet Volume 7.3 FL (6.5-10.1) Neutrophils (%) (Auto) % (45.0-75.0) Lymphocytes (%) (Auto) % (20.0-45.0) Monocytes (%) (Auto) % (1.0-10.0) Eosinophils (%) (Auto) % (0.0-3.0) Basophils (%) (Auto) % (0.0-2.0) Differential Total Cells Counted 100 Neutrophils % (Manual) 89 % (45-75) H Lymphocytes % (Manual) 7 % (20-45) L Monocytes % (Manual) 4 % (1-10) Eosinophils % (Manual) 0 % (0-3) Basophils % (Manual) 0 % (0-2) Band Neutrophils 0 % (0-8) Platelet Estimate Adequate Platelet Morphology Normal Macrocytosis 1+ Sodium Level 139 MMOL/L (136-145) Potassium Level 2.8 MMOL/L (3.5-5.1) L Chloride Level 103 MMOL/L (98-107) Carbon Dioxide Level 26 MMOL/L (21-32) Anion Gap 11 mmol/L (5-15) Blood Urea Nitrogen 15 mg/dL (7-18) Creatinine 0.9 MG/DL (0.55-1.30) Estimat Glomerular Filtration Rate > 60 mL/min (>60) Glucose Level 135 MG/DL (74-106) H Calcium Level 8.1 MG/DL (8.5-10.1) L Total Bilirubin 1.4 MG/DL (0.2-1.0) H Direct Bilirubin 0.5 MG/DL (0.0-0.3) H Aspartate Amino Transf (AST/SGOT) 132 U/L (15-37) H Alanine Aminotransferase (ALT/SGPT) 105 U/L (12-78) H Alkaline Phosphatase 96 U/L (46-116) Total Protein 6.9 G/DL (6.4-8.2) Albumin 2.5 G/DL (3.4-5.0) L Globulin 4.4 g/dL Albumin/Globulin Ratio 0.6 (1.0-2.7) L Amylase Level 32 U/L (25-115) Lipase 72 U/L (73-393) L Plan Problems: (1) Acute pancreatitis Assessment & Plan: Possible acute acalculous cholecystitis with acute pancreatitis US and CT noted labs reviewed GI input noted npo iv fluids trend labs bowel rest will follow with exams thank you Liver: Liver diameter of 14.7 cm. No visible parenchymal lesions. No intrahepatic biliary ductal dilatation. Gallbladder: Distended gallbladder with mild wall thickening up to 4.2 mm. No visible stones or sludge. No pericholecystic fluid. Common bile duct: Common bile duct diameter of 5.2 mm, within normal limits. Pancreas: Unremarkable as visualized. Aorta: Proximal abdominal aorta appears within normal limits. Mid and distal abdominal aorta are scattered by bowel gas. IMPRESSION: Distended gallbladder with mild wall thickening up to 4.2 mm. No visible stones or sludge. No pericholecystic fluid. Normal diameter of the common bile duct. (2) Gallstone pancreatitis Assessment & Plan: The pancreas is mildly prominent. There is infiltration of the peripancreatic fat. Fluid is seen tracking into the lesser sac, and along the mesenteric root and Gerota's fascia on the right. A small amount of fluid is also seen over the dome of the spleen. There is a cystic lesion in the pancreatic tail which measures 2 cm in diameter. No other organized fluid collection demonstrated. The pancreas enhances normally. The gallbladder is distended. Demonstrates a small amount of mural calcification and mural edema. No definite gallstones. The common bile duct is borderline dilated, measuring 7 mm diameter. No definite downstream obstructive lesion is demonstrated. The liver demonstrates multiple subcentimeter low-attenuation lesions which are too small to characterize. The spleen, adrenals, kidneys are unremarkable. No retroperitoneal or mesenteric mass or adenopathy. No pelvic mass or adenopathy. Lack of enteric contrast limits assessment of the GI tract. The colon demonstrates multiple diverticula. The appendix is normal. The small bowel is nondilated. No free intraperitoneal gas demonstrated. Distal esophagus is slightly fluid-filled. The stomach and duodenum are unremarkable. The included lung bases demonstrate bilateral posterior dependent atelectatic changes. The bones demonstrate degenerative spondylosis changes. Impression: Evidence of acute pancreatitis. No evidence of pancreatic necrosis 2 cm cystic lesion in the pancreatic tail. If there is been prior history of pancreatitis, this likely represents a pseudocyst. However, the possibility of pancreatic cystic neoplasm should also be considered and follow-up imaging is recommended Distended gallbladder without stones. Mild gallbladder wall edema. Likely reactive related to the the pancreatic inflammation, but the possibility of acute cholecystitis should also be considered. Borderline extra hepatic biliary ductal dilatation without downstream obstructive lesion demonstrated, probably age-related Subcentimeter low-attenuation lesions in the liver, too small to characterize, most likely benign simple cysts or bile hamartomas Colonic diverticula. No evidence of diverticulitis Fluid-filled esophagus, probably due to age-related dysmotility Basilar dependent pulmonary atelectatic changes and degenerative spondylosis changes incidentally noted Christiano Barger May 27, 2020 15:16
[2020-05-27 16:00] VITALS: BP 167/85
--- NOTE | 2020-05-27 17:47 | NUR ---
CASE MANAGEMENT: REVIEW SI: GALLSTONE . PANCREATITIS T 99.7 HR 76 RR 20 BP 167/85 SAT 167/85 SAT 100% ROOM AIR WBC 18.2 K 2.8 AST 132 ALT 105 IS: KCl 10MEQ X1 MEROPENEM IV Q8HR DILAUDID Q4HR PRN NPO -- BOWEL REST EUS -- PENDING MED/SURG STATUS DCP: PATIENT IS FROM HOME
--- NOTE | 2020-05-27 18:04 | NUR ---
INSURANCE CLINICALS/REVIEW FAXED TO [facility] [phone]
--- NOTE | 2020-05-27 18:04 | NUR ---
NURSE NOTES: Consents signed and in chart.
--- NOTE | 2020-05-27 19:45 | NUR ---
NURSE HAND-OFF: Important Events on Shift:k replacement, antibiotic Patient Status: stable Diet: ccho med Pending Orders: n/a Pending Results/Labs:n/a Pending MD notification:n/a Latest Vital Signs: Temperature 99.7 , Pulse 76 , B/P 167 /85 , Respiratory Rate 20 , O2 SAT 100 , Room Air, O2 Flow Rate . Vital Sign Comment: n/a Latest Mast Fall Score: 85 Fall Risk: High Risk Safety Measures: Call light Within Reach, Bed Alarm Zone 1, Side Rails Side Rails x2, Bed position Low and Locked. Fall Precautions: Yellow Socks Door Sign Patient Fall Education Report given to Tiffanie FRIEND.
[2020-05-27 20:00] VITALS: BP 154/78
--- NOTE | 2020-05-27 20:00 | NUR ---
NURSES NOTE: Received report from RONNA Maldonado. Rounds made. Pt in bed, Pashto speaker, but is able to communicate and answer basic questions appropriately. Pt denies discomfort or pain at this time. Monitoring for SOB upon exertion. No outward s/s of distress noted. R lung sounds clear, L lung sound diminished. Breathing is even and unlabored on RA. R H 20g in place, hep locked. HHN available PRN if SOB noted. All due medications will be administered. Bed at lowest level, call light within reach. Pt will continue to be monitored.
--- NOTE | 2020-05-27 20:31 | CDS Physician Query ---
Clarification is required for compliance, coding accuracy, and to reflect severity of illness for this patient Dear Dr. Lawson Date: 05/27/20 CDI: Prince Mckee Per IM progress note on 05/27/20, patient has pancreatitis, possible pseudocyst, possible cholecystitis, history of CVA, hyperglycemia, diabetes, hypertension, hypokalemia, persistent leukocytosis Per Infectious Disease note on 05/27/20, patient has pancreatitis improving, pancreatic pseudocyst,?cholecystitis, leukocytosis improving WBC: 18.0, 17.8, 24.8, 19.3, 18.2 Vitals: T 97.0, 97.1 HR 94, 95 RR 20, 20 Medication: Meropenem 500mg IV According to the clinical indications above, please indicate below the condition PHYSICIAN RESPONSE: [ ] Sepsis [ ] SIRS [ ] SIRS with organ dysfunction [ ] Septic Shock [ ] Not applicable [ ] Other: Present on Admission: [ ] Yes [ ] No [ ] Clinically Undetermined Physician signature Date Please also document in your Progress Notes and/or Discharge Summary and indicate if the condition was present on admission. MTDD
[2020-05-28] VITALS (8 sets, daily range): BP systolic 141–161; BP diastolic 67–80
[2020-05-28] MEDS: Meropenem 500 MG in NS 55 ML IVPB SCH ×2 (05:17→14:00)
--- NOTE | 2020-05-28 06:53 | NUR ---
NURSE HAND-OFF: Important Events on Shift:[Esophagogastroduodenoscopy scheduled 05/28 0800. Consents in chart. Pt NPO since 0000, Pt may need another Clonidine 0.1 mg before procedure at 0730] Patient Status: [stable] Diet: [NPO] Pending Orders: [NONE] Pending Results/Labs:[NONE] Pending MD notification:[NONE] Latest Vital Signs: Temperature 99.2 , Pulse 69 , B/P 161 /80 , Respiratory Rate 17 , O2 SAT 95 , Room Air, O2 Flow Rate . Vital Sign Comment: [BP ran high NOC shift] Latest Mast Fall Score: 75 Fall Risk: High Risk Safety Measures: Call light Within Reach, Bed Alarm Zone 1, Side Rails Side Rails x2, Bed position Low and Locked. Fall Precautions: Yellow Socks Door Sign Patient Fall Education Report given to [].
--- NOTE | 2020-05-28 07:36 | NUR ---
NURSE NOTES: Report received from Tiffanie FRIEND, rounds made. Patient resting in semi-fowlers position in bed. AOx4, calm. Serbian speaking. Right hand SL, intact, site asymptomatic. NPO for endoscopic US this AM, confirmed consent is signed/in chart. Call light in reach, bed in lowest position, will continue to monitor.
[2020-05-28 07:46] LABS: BASOPHILS % (AUTO) 0.7 % (0.0-2.0); EOSINOPHILS % (AUTO) 0.7 % (0.0-3.0); HEMATOCRIT 37.8 % (37.0-47.0); HEMOGLOBIN 12.5 G/DL (12.0-16.0); LYMPHOCYTES % (AUTO) 8.4 % (20.0-45.0); MEAN CORPUSCULAR VOLUME 98 FL (80-99); MONOCYTES % (AUTO) 7.8 % (1.0-10.0); NEUTROPHILS % (AUTO) 82.4 % (45.0-75.0); PLATELET COUNT 205 K/UL (150-450); RED BLOOD COUNT 3.87 M/UL (4.20-5.40); RED CELL DISTRIBUTION WIDTH 12.9 % (11.6-14.8); WHITE BLOOD COUNT 14.9 K/UL (4.8-10.8)
--- NOTE | 2020-05-28 07:46 | NUR ---
HAND OFF: Report given to Janie FRIEND
--- NOTE | 2020-05-28 07:50 | NUR ---
NURSE NOTES: Vitals assessed, Afebrile. BP 160/80, medicated with Clonidine 0.1 mg PO with small sip of water, as ordered. Patient sent down for Endoscopic US at this time via rajan, on RA, in stable condition.
--- NOTE | 2020-05-28 07:53 | Pre-Procedure Note/Attestation ---
Pre-Procedure Note/Attestation Complete Prior to Procedure Planned Procedure: not applicable Procedure Narrative: eus Indications for Procedure Pre-Operative Diagnosis: pancreatitis Attestation I attest that I discussed the nature of the procedure; its benefits; risks and complications; and alternatives (and the risks and benefits of such alternatives), prior to the procedure, with the patient (or the patient's legal claim service representative). I attest that, if there was a reasonable possibility of needing a blood transfus ion, the patient (or the patient's legal claim service representative) was given the [facility] standardized written summary, pursuant to the [place] Blood Safety Act ([place] Health and Safety Code # 1645, as amended). I attest that I re-evaluated the patient just prior to the surgery and that there has been no change in the patient's H&P, except as documented below: Pablito Hall MD May 28, 2020 07:53
[2020-05-28] MEDS ORDERED: NS 500ML IVPB ONE (07:55)
[2020-05-28] MEDS ORDERED: Lidocaine 1% MPF 10mg/ml 5ml ONE (08:00)
--- NOTE | 2020-05-28 08:14 | Anethesia Preoperative Eval ---
Anesthesia Pre-op PMH/ROS General Date of Evaluation: May 28, 2020 Time of Evaluation: 07:43 Anesthesiologist: jack ASA Score: ASA 4 Mallampati Score Class I : Soft palate, uvula, fauces, pillars visible Class II: Soft palate, uvula, fauces visible Class III: Soft palate, base of uvula visible Class IV: Only hard plate visible Mallampati Classification: Class II Surgeon: melanie Diagnosis: gallstone pancreatitis Surgical Procedure: egd/eus Anesthesia History: none Social History: smoking - nonsmoker Family History: no anesthesia problems Allergies: Coded Allergies: PENICILLINS (Unverified Allergy, Intermediate, 05/23/20) Per daughter, unknown reaction Medications: see eMAR Patient NPO?: Yes Past Medical History Cardiovascular: Reports: HTN, other - varicose veins Neurologic/Psychiatric: Reports: other - cva, unsteady gait, memory loss Hematology/Immune: Reports: other - anticoagulant therapy Anesthesia Pre-op Phys. Exam Physician Exam Last Vital Signs Date Time Temp Pulse Resp B/P (MAP) Pulse Ox O2 Delivery O2 Flow Rate FiO2 05/28/20 07:47 160/80 05/28/20 04:00 99.2 69 17 95 05/27/20 21:00 Room Air 05/26/20 18:20 21 Constitutional: NAD Neurologic: CN 2-12 intact Cardiovascular: RRR Respiratory: CTA Gastrointestinal: S/NT/ND Airway Exam Mallampati Score: Class II MO: limited Neck: flexible TMD: 2fb ROM: limited Teeth: missing Anesthesia Pre-op A/P Labs Microbiology Date/Time Source Procedure Growth Status 05/23/20 15:08 Nasopharynx SARS-CoV-2 RdRp Gene Assay - Final Complete Hematology Test 05/28/20 05:39 White Blood Count 14.9 K/UL (4.8-10.8) H Red Blood Count 3.87 M/UL (4.20-5.40) L Hemoglobin 12.5 G/DL (12.0-16.0) Hematocrit 37.8 % (37.0-47.0) Mean Corpuscular Volume 98 FL (80-99) Mean Corpuscular Hemoglobin 32.3 PG (27.0-31.0) H Mean Corpuscular Hemoglobin Concent 33.1 G/DL (32.0-36.0) Red Cell Distribution Width 12.9 % (11.6-14.8) Platelet Count 205 K/UL (150-450) Mean Platelet Volume 7.0 FL (6.5-10.1) Neutrophils (%) (Auto) 82.4 % (45.0-75.0) H Lymphocytes (%) (Auto) 8.4 % (20.0-45.0) L Monocytes (%) (Auto) 7.8 % (1.0-10.0) Eosinophils (%) (Auto) 0.7 % (0.0-3.0) Basophils (%) (Auto) 0.7 % (0.0-2.0) Chemistry Test 05/28/20 05:39 Sodium Level Pending Potassium Level Pending Chloride Level Pending Carbon Dioxide Level Pending Blood Urea Nitrogen Pending Creatinine Pending Estimat Glomerular Filtration Rate Pending Glucose Level Pending Calcium Level Pending Total Bilirubin Pending Aspartate Amino Transf (AST/SGOT) Pending Alanine Aminotransferase (ALT/SGPT) Pending Alkaline Phosphatase Pending Total Protein Pending Albumin Pending Globulin Pending CA 19-9 Antigen Pending Risk Assessment & Plan Assessment: asa4 Plan: mac Status Change Before Surgery: No Pre-Antibiotics Drug: Rosalind Ramirez MD May 28, 2020 08:14
[2020-05-28] MEDS ORDERED: Midazolam 2mg/2ml Inj IVP PRN (08:15)
[2020-05-28] MEDS ORDERED: DiphenhydrAMINE 50mg/ml Inj IVP PRN (08:15)
[2020-05-28] MEDS ORDERED: fentaNYL 100 mcg/2 mL IV PRN (08:15)
[2020-05-28] MEDS ORDERED: Atropine Inj 1mg/10ml Syr IVP PRN (08:15)
[2020-05-28] MEDS ORDERED: Heplock Flush 100 units/ml 3 ml syr ONE (08:17)
[2020-05-28 08:40] LABS: ALANINE AMINOTRANSFERASE 214 U/L (12-78); ALBUMIN/GLOBULIN RATIO 0.5 (1.0-2.7); ALKALINE PHOSPHATASE 104 U/L (46-116); ANION GAP 9 mmol/L (5-15); ASPARTATE AMINO TRANSFERASE 177 U/L (15-37); BILIRUBIN,TOTAL 1.1 MG/DL (0.2-1.0); BLOOD UREA NITROGEN 14 mg/dL (7-18); CALCIUM 7.8 MG/DL (8.5-10.1); CARBON DIOXIDE 26 MMOL/L (21-32); CHLORIDE 106 MMOL/L (98-107); CREATININE 0.8 MG/DL (0.55-1.30); SODIUM 141 MMOL/L (136-145)
[2020-05-28 08:45] LABS: BILIRUBIN,DIRECT 0.4 MG/DL (0.0-0.3)
--- NOTE | 2020-05-28 08:49 | Endoscopy Procedure Note ---
Endoscopy Procedure Note General Indication for Procedure: pancreatitis Procedures Performed: other - EUS Operative Findings/Diagnosis: panc cyst Specimen: yes Pt Tolerated Procedure Well: Yes Estimated Blood Loss: none Anesthesia Anesthesiologist: harvinder talavera Anesthesia: MAC Inserted Devices Implant(s) used?: No GI Core Measures 50 yrs or older w/o bx or poly: Not Applicable 10yrs. F/U recommended: Not Applicable Pablito Hall MD May 28, 2020 08:49
--- NOTE | 2020-05-28 09:05 | Immediate Post-Op Evaluation ---
Immediate Post-Op Evalulation Immediate Post-Op Evalulation Procedure: egd/eus Date of Evaluation: May 28, 2020 Time of Evaluation: 09:04 IV Fluids: 300ml 0.9ns Blood Products: none Estimated Blood Loss: negligible Blood Pressure Systolic: 145 Blood Pressure Diastolic: 69 Pulse Rate: 65 Respiratory Rate: 18 O2 Sat by Pulse Oximetry: 99 Temperature (Fahrenheit): 97.4 Pain Score (1-10): 0 Nausea: No Vomiting: No Complications none Patient Status: awake, reacts, patent Hydration Status: adequate Drug: Rosalind Ramirez MD May 28, 2020 09:05
--- NOTE | 2020-05-28 09:06 | 48 Hour Post Anesthesia Eval ---
Post Anesthesia Evaluation Procedure: egd/eus Date of Evaluation: May 28, 2020 Time of Evaluation: 09:06 Blood Pressure Systolic: 141 0: 71 Pulse Rate: 67 Respiratory Rate: 18 Temperature (Fahrenheit): 97.4 O2 Sat by Pulse Oximetry: 99 Airway: patent Nausea: No Vomiting: No Pain Intensity: 0 Hydration Status: adequate Cardiopulmonary Status: stable Mental Status/LOC: patient returned to baseline Post-Anesthesia Complications: none Follow-up care needed: N/A Rosalind Osei MD May 28, 2020 09:06
--- NOTE | 2020-05-28 10:30 | Procedure Note ---
DATE OF PROCEDURE: 05/28/2020 SURGEON: Pablito Hall MD PROCEDURE: EUS with FNA. ANESTHESIA: Per Dr. Schmidt. INSTRUMENT: Olympus adult EUS radial and linear scope. INDICATION: Pancreatitis, pancreatic cyst, questionable pancreatic mass. The procedure, risks, benefits, and possible consequences, including hemorrhage, aspiration, perforation and infection, and alternative treatments, were explained to the patient/legal guardian by Dr. Pablito Hall and the patient/legal guardian understood and accepted these risks. DESCRIPTION OF PROCEDURE: After informed consent was obtained and the patient was adequately sedated, EUS radial scope was advanced from the mouth into the second portion of the duodenum. Pancreatic parenchyma was carefully examined through the gastroduodenal mucosa. The patient had evidence of it looked like a 2-cm cystic lesion in the tail of the pancreas. Mild pancreatic atrophy in the rest of the pancreas. There were no gallstones. There was gallbladder wall thickening to about 4 mm. There was a small gallbladder polyp that measured roughly about 6 mm. No common bile duct and no pancreatic duct dilatation. No obvious peripancreatic lymphadenopathy. At this time, the EUS radial scope was removed and linear scope was introduced. This lesion in the tail of the pancreas was actually measured a little bit larger, it was 2.4 with 1.6 cm cystic area. At this time, we introduced a 22-gauge needle. First, we aspirated the fluid completely and sent it for CA 19-9. Then, we did two more FNAs of this pancreatic cystic lesion. The patient tolerated the procedure well without any complication. SUMMARY OF FINDINGS: 1. Gallbladder wall thickening to about 4 mm. 2. Gallbladder polyp of 6 mm. 3. No gallstones. 4. No common bile duct and no pancreatic duct dilatation. 5. Atrophic pancreas. 6. Cystic lesion in the tail of the pancreas, suspicious for malignancy, status post FNA x3 with fluid aspiration. RECOMMENDATIONS: Follow CA 19-9. Follow up biopsy results from this procedure. We will monitor the patient closely. Pablito Hall M.D. DR: Eder JOB#: [id number] CC:
--- NOTE | 2020-05-28 10:32 | Pulmonology Progress Note ---
Subjective ROS Limited/Unobtainable: Yes Interval Events: Seen by gastroenterology and surgery. HEENT: Repors: no symptoms Respiratory: Reports: no symptoms Cardiovascular: Reports: no symptoms Gastrointestinal/Abdominal: Denies: nausea, vomiting, diarrhea Genitourinary: Reports: no symptoms Neurologic: Reports: no symptoms Psychiatric: Reports: no symptoms Musculoskeletal: Reports: pain - in abdomen Allergies: Coded Allergies: PENICILLINS (Unverified Allergy, Intermediate, 05/23/20) Per daughter, unknown reaction Objective Last 24 Hour Vital Signs Date Time Temp Pulse Resp B/P (MAP) Pulse Ox O2 Delivery O2 Flow Rate FiO2 05/28/20 09:15 97.5 68 22 152/67 96 Room Air 05/28/20 09:06 67 18 99 05/28/20 09:05 65 18 99 05/28/20 09:00 68 22 154/75 98 Nasal Cannula 3 05/28/20 08:55 67 22 141/71 99 Nasal Cannula 3 05/28/20 08:52 97.4 63 20 145/69 99 Nasal Cannula 3 05/28/20 08:00 98.7 77 16 160/80 (106) 95 05/28/20 07:47 160/80 05/28/20 04:00 99.2 69 17 161/80 (107) 95 05/28/20 03:34 159/80 05/28/20 00:00 98.7 76 18 148/77 (100) 97 05/27/20 22:43 99.2 05/27/20 21:00 Room Air 05/27/20 20:00 100.8 83 16 154/78 (103) 95 05/27/20 17:55 167/85 05/27/20 16:00 99.7 76 20 167/85 (112) 100 05/27/20 12:30 178/87 05/27/20 12:00 98.8 79 18 178/87 (117) 95 Intake and Output 05/27/20 05/28/20 18:59 06:59 Intake Total 840 ml Balance 840 ml Intake Oral 840 ml # Voids 6 3 General Appearance: no acute distress HEENT: normocephalic Respiratory: chest wall non-tender, lungs clear Cardiovascular: normal peripheral pulses Abdomen: normal bowel sounds Laboratory Tests 05/28/20 05:39: White Blood Count 14.9H, Red Blood Count 3.87L, Hemoglobin 12.5, Hematocrit 37.8, Mean Corpuscular Volume 98, Mean Corpuscular Hemoglobin 32.3H, Mean Corpuscular Hemoglobin Concent 33.1, Red Cell Distribution Width 12.9, Platelet Count 205, Mean Platelet Volume 7.0, Neutrophils (%) (Auto) 82.4H, Lymphocytes (%) (Auto) 8.4L, Monocytes (%) (Auto) 7.8, Eosinophils (%) (Auto) 0.7, Basophils (%) (Auto) 0.7, Sodium Level 141, Potassium Level 3.0L, Chloride Level 106, Carbon Dioxide Level 26, Anion Gap 9, Blood Urea Nitrogen 14, Creatinine 0.8, Estimat Glomerular Filtration Rate > 60, Glucose Level 108H, Calcium Level 7.8L, Total Bilirubin 1.1H, Direct Bilirubin 0.4H, Aspartate Amino Transf (AST/SGOT) 177H, Alanine Aminotransferase (ALT/SGPT) 214H, Alkaline Phosphatase 104, Total Protein 5.9L, Albumin 2.0L, Globulin 3.9, Albumin/Globulin Ratio 0.5L, CA 19-9 Antigen [Pending] 05/28/20 08:40: Body Fluid Carcinoembryonic Antigen [Pending] Current Medications Medications (Trade) Dose Ordered Sig/Solomon Route PRN Reason Start Time Stop Time Status Last Admin Dose Admin Acetaminophen (Tylenol) 650 mg Q4H PRN ORAL Mild Pain (Pain Scale 1-3) 05/28/20 08:15 05/28/20 18:00 Acetaminophen (Tylenol) 650 mg Q6H PRN ORAL Temp >100.5 05/25/20 07:00 06/24/20 06:59 05/27/20 21:41 Al Hydroxide/Mg Hydroxide (Mylanta) 15 ml Q1H PRN ORAL gi upset 05/28/20 08:15 05/28/20 18:00 Albuterol/ Ipratropium (Albuterol/ Ipratropium) 3 ml Q6H PRN HHN Shortness of Breath 05/26/20 18:00 05/31/20 17:59 05/26/20 18:09 Atropine Sulfate (Atropine) 0.5 mg Q5M PRN IVP bpm less than 45 05/28/20 08:15 05/28/20 18:00 Clonidine HCl (Catapres Tab) 0.1 mg Q4H PRN ORAL For High Blood Pressure 05/24/20 12:00 08/22/20 11:59 05/28/20 07:47 Diphenhydramine HCl (Benadryl) 25 mg Q15M PRN IVP Itching 05/28/20 08:15 05/28/20 18:00 Fentanyl Citrate (Sublimaze 100 mcg/2 mL) 25 mcg Q10M PRN IV Moderate Pain (Pain Scale 4-6) 05/28/20 08:15 05/28/20 18:00 Gadobutrol (Gadavist) 7.5 mmol NOW PRN IV Radiology Procedure 05/25/20 09:15 05/29/20 09:14 Hydralazine HCl (Apresoline) 5 mg Q30M PRN IV SBP>160 OR___/DBP>90 OR___ 05/28/20 08:15 05/28/20 18:00 Hydromorphone HCl (Dilaudid) 0.5 mg Q4H PRN IVP Severe Pain (Pain Scale 7-10) 05/23/20 21:00 05/30/20 20:59 05/26/20 05:18 Meropenem 500 mg/ Sodium Chloride 55 ml @ 110 mls/hr EVERY 8 HOURS IVPB 05/25/20 14:00 05/30/20 13:59 05/28/20 05:17 Midazolam HCl (Versed 2mg/2ml vial) 1 mg Q15M PRN IVP For Anxiety 05/28/20 08:15 05/28/20 18:00 Morphine Sulfate (Morphine Sulfate) 2 mg Q4H PRN IVP For Pain 05/23/20 16:30 05/30/20 16:29 05/23/20 16:26 Ondansetron HCl (Zofran) 4 mg Q1H PRN IVP Nausea & Vomiting 05/28/20 08:15 05/28/20 18:00 Ondansetron HCl (Zofran) 4 mg Q6H PRN IVP Nausea & Vomiting 05/24/20 10:00 06/23/20 09:59 Polyethylene Glycol (Miralax) 17 gm DAILY PRN ORAL Constipation 05/27/20 09:30 06/26/20 09:29 05/27/20 09:32 Assessment/Plan Assessment/Plan IMPRESSION: 1. Pancreatitis. 2. Possible pseudocyst vs pancreatic CA; s/p EUS and biopsy 3. Doubt cholecystitis. 4. History of CVA. 5. Hyperglycemia. 6. Diabetes. 7. Hypertension. 8. Hypokalemia 9. persistent leucocytosis; improved DISCUSSION: Continue antibiotics. Continue and advance diet MRCP partly done; remainder refused by pt S/p EUS and biopsy Correct/replace K DC home Outpt followup for biopsy results More Landin Omar Syed MD May 28, 2020 10:32
[2020-05-28] MEDS ORDERED: LEVOFLOXACIN500 MG ORAL (10:34)
[2020-05-28] MEDS ORDERED: Flu Vac High-Dose for Pts 65 Years and Older IM ONE (11:00)
--- NOTE | 2020-05-28 11:25 | Infectious Diseases Prog Note ---
Assessment/Plan Assessment/Plan antibiotics : meropenem A 1. pancreatitis improving 2. pancreatic pseudocyst 3. ? cholecystitis 4. leucocytosis improving 5. ? pancreatic mass P 1. d/c meropenem 2. start and continue levoquin 6 more days 3. will follow up cultures Subjective Constitutional: Denies: fever, chills Respiratory: Denies: shortness of breath, dry cough Gastrointestinal/Abdominal: Denies: nausea, vomiting, diarrhea Musculoskeletal: Reports: pain - decreased Allergies: Coded Allergies: PENICILLINS (Unverified Allergy, Intermediate, 05/23/20) Per daughter, unknown reaction Objective Last 24 Hour Vital Signs Date Time Temp Pulse Resp B/P (MAP) Pulse Ox O2 Delivery O2 Flow Rate FiO2 05/28/20 09:15 97.5 68 22 152/67 96 Room Air 05/28/20 09:06 67 18 99 05/28/20 09:05 65 18 99 05/28/20 09:00 68 22 154/75 98 Nasal Cannula 3 05/28/20 08:55 67 22 141/71 99 Nasal Cannula 3 05/28/20 08:52 97.4 63 20 145/69 99 Nasal Cannula 3 05/28/20 08:00 98.7 77 16 160/80 (106) 95 05/28/20 07:47 160/80 05/28/20 04:00 99.2 69 17 161/80 (107) 95 05/28/20 03:34 159/80 05/28/20 00:00 98.7 76 18 148/77 (100) 97 05/27/20 22:43 99.2 05/27/20 21:00 Room Air 05/27/20 20:00 100.8 83 16 154/78 (103) 95 05/27/20 17:55 167/85 05/27/20 16:00 99.7 76 20 167/85 (112) 100 05/27/20 12:30 178/87 05/27/20 12:00 98.8 79 18 178/87 (117) 95 Height (Feet): 5 Height (Inches): 1.00 Weight (Pounds): 142 Respiratory/Chest: lungs clear Cardiovascular: normal rate, regular rhythm, no gallop/murmur Abdomen: soft, non tender Extremities: no edema Laboratory Tests Test 05/28/20 05:39 05/28/20 08:40 White Blood Count 14.9 K/UL (4.8-10.8) H Red Blood Count 3.87 M/UL (4.20-5.40) L Hemoglobin 12.5 G/DL (12.0-16.0) Hematocrit 37.8 % (37.0-47.0) Mean Corpuscular Volume 98 FL (80-99) Mean Corpuscular Hemoglobin 32.3 PG (27.0-31.0) H Mean Corpuscular Hemoglobin Concent 33.1 G/DL (32.0-36.0) Red Cell Distribution Width 12.9 % (11.6-14.8) Platelet Count 205 K/UL (150-450) Mean Platelet Volume 7.0 FL (6.5-10.1) Neutrophils (%) (Auto) 82.4 % (45.0-75.0) H Lymphocytes (%) (Auto) 8.4 % (20.0-45.0) L Monocytes (%) (Auto) 7.8 % (1.0-10.0) Eosinophils (%) (Auto) 0.7 % (0.0-3.0) Basophils (%) (Auto) 0.7 % (0.0-2.0) Sodium Level 141 MMOL/L (136-145) Potassium Level 3.0 MMOL/L (3.5-5.1) L Chloride Level 106 MMOL/L (98-107) Carbon Dioxide Level 26 MMOL/L (21-32) Anion Gap 9 mmol/L (5-15) Blood Urea Nitrogen 14 mg/dL (7-18) Creatinine 0.8 MG/DL (0.55-1.30) Estimat Glomerular Filtration Rate > 60 mL/min (>60) Glucose Level 108 MG/DL (74-106) H Calcium Level 7.8 MG/DL (8.5-10.1) L Total Bilirubin 1.1 MG/DL (0.2-1.0) H Direct Bilirubin 0.4 MG/DL (0.0-0.3) H Aspartate Amino Transf (AST/SGOT) 177 U/L (15-37) H Alanine Aminotransferase (ALT/SGPT) 214 U/L (12-78) H Alkaline Phosphatase 104 U/L (46-116) Total Protein 5.9 G/DL (6.4-8.2) L Albumin 2.0 G/DL (3.4-5.0) L Globulin 3.9 g/dL Albumin/Globulin Ratio 0.5 (1.0-2.7) L CA 19-9 Antigen Pending Body Fluid Carcinoembryonic Antigen Pending Current Medications Medications (Trade) Dose Ordered Sig/Solomon Route PRN Reason Start Time Stop Time Status Last Admin Dose Admin Acetaminophen (Tylenol) 650 mg Q4H PRN ORAL Mild Pain (Pain Scale 1-3) 05/28/20 08:15 05/28/20 18:00 Acetaminophen (Tylenol) 650 mg Q6H PRN ORAL Temp >100.5 05/25/20 07:00 06/24/20 06:59 05/27/20 21:41 Al Hydroxide/Mg Hydroxide (Mylanta) 15 ml Q1H PRN ORAL gi upset 05/28/20 08:15 05/28/20 18:00 Albuterol/ Ipratropium (Albuterol/ Ipratropium) 3 ml Q6H PRN HHN Shortness of Breath 05/26/20 18:00 05/31/20 17:59 05/26/20 18:09 Atropine Sulfate (Atropine) 0.5 mg Q5M PRN IVP bpm less than 45 05/28/20 08:15 05/28/20 18:00 Clonidine HCl (Catapres Tab) 0.1 mg Q4H PRN ORAL For High Blood Pressure 05/24/20 12:00 08/22/20 11:59 05/28/20 07:47 Diphenhydramine HCl (Benadryl) 25 mg Q15M PRN IVP Itching 05/28/20 08:15 05/28/20 18:00 Fentanyl Citrate (Sublimaze 100 mcg/2 mL) 25 mcg Q10M PRN IV Moderate Pain (Pain Scale 4-6) 05/28/20 08:15 05/28/20 18:00 Gadobutrol (Gadavist) 7.5 mmol NOW PRN IV Radiology Procedure 05/25/20 09:15 05/29/20 09:14 Hydralazine HCl (Apresoline) 5 mg Q30M PRN IV SBP>160 OR___/DBP>90 OR___ 05/28/20 08:15 05/28/20 18:00 Hydromorphone HCl (Dilaudid) 0.5 mg Q4H PRN IVP Severe Pain (Pain Scale 7-10) 05/23/20 21:00 05/30/20 20:59 05/26/20 05:18 Meropenem 500 mg/ Sodium Chloride 55 ml @ 110 mls/hr EVERY 8 HOURS IVPB 05/25/20 14:00 05/30/20 13:59 05/28/20 05:17 Midazolam HCl (Versed 2mg/2ml vial) 1 mg Q15M PRN IVP For Anxiety 05/28/20 08:15 05/28/20 18:00 Morphine Sulfate (Morphine Sulfate) 2 mg Q4H PRN IVP For Pain 05/23/20 16:30 05/30/20 16:29 05/23/20 16:26 Ondansetron HCl (Zofran) 4 mg Q1H PRN IVP Nausea & Vomiting 05/28/20 08:15 05/28/20 18:00 Ondansetron HCl (Zofran) 4 mg Q6H PRN IVP Nausea & Vomiting 05/24/20 10:00 06/23/20 09:59 Polyethylene Glycol (Miralax) 17 gm DAILY PRN ORAL Constipation 05/27/20 09:30 06/26/20 09:29 05/27/20 09:32 Potassium Chloride (K-Dur) 40 meq ONCE ORAL 05/28/20 11:00 05/28/20 12:00 Albino Yeh MD May 28, 2020 11:24
--- NOTE | 2020-05-28 11:43 | NUR ---
RD ASSESSMENT & RECOMMENDATIONS SEE CARE ACTIVITY FOR COMPLETE ASSESSMENT DAILY ESTIMATED NEEDS: Needs based on Acute pancreatitis, 52kg abw 25-30 kcals/kg 1090-0339 total kcals 1-1.5 g protein/kg 52-78 g total protein 25-30 mL/kg 6909-5814 total fluid mLs NUTRITION DIAGNOSIS: Decreased sodium and fat needs r/t cardiac history and adm dx pancreatitis as evidenced by elev BP, h/o CVA, adm w/ gallstone pancreatitis, elev lipase and amylase, now trending down. CURRENT DIET: NPO for GI-> now [facility] MED PO DIET RECOMMENDATIONS: Low Na, Low Fat diet (cardiac) ADDITIONAL RECOMMENDATIONS: 1) Obtain a standing scale as able, or calibrated bed scale 2) Check HgA1C 3) Monitor tolerance to diet
--- NOTE | 2020-05-28 13:30 | Surgery Progress Note ---
Surgery Progress Note Subjective Additional Comments eus with biopsy labs improved exam improved no complaints no n/v Objective Last 24 Hour Vital Signs Date Time Temp Pulse Resp B/P (MAP) Pulse Ox O2 Delivery O2 Flow Rate FiO2 05/28/20 09:15 97.5 68 22 152/67 96 Room Air 05/28/20 09:06 67 18 99 05/28/20 09:05 65 18 99 05/28/20 09:00 68 22 154/75 98 Nasal Cannula 3 05/28/20 09:00 Room Air 05/28/20 08:55 67 22 141/71 99 Nasal Cannula 3 05/28/20 08:52 97.4 63 20 145/69 99 Nasal Cannula 3 05/28/20 08:00 98.7 77 16 160/80 (106) 95 05/28/20 07:47 160/80 05/28/20 04:00 99.2 69 17 161/80 (107) 95 05/28/20 03:34 159/80 05/28/20 00:00 98.7 76 18 148/77 (100) 97 05/27/20 22:43 99.2 05/27/20 21:00 Room Air 05/27/20 20:00 100.8 83 16 154/78 (103) 95 05/27/20 17:55 167/85 05/27/20 16:00 99.7 76 20 167/85 (112) 100 I&O Intake and Output 05/27/20 05/28/20 19:00 07:00 Intake Total 840 ml Balance 840 ml Intake Oral 840 ml # Voids 6 3 Cardiovascular: RSR Respiratory: clear Abdomen: soft, flat, non-tender, present bowel sounds Extremities: no edema, no tenderness, no cyanosis Laboratory Tests Test 05/28/20 05:39 05/28/20 08:40 White Blood Count 14.9 K/UL (4.8-10.8) H Red Blood Count 3.87 M/UL (4.20-5.40) L Hemoglobin 12.5 G/DL (12.0-16.0) Hematocrit 37.8 % (37.0-47.0) Mean Corpuscular Volume 98 FL (80-99) Mean Corpuscular Hemoglobin 32.3 PG (27.0-31.0) H Mean Corpuscular Hemoglobin Concent 33.1 G/DL (32.0-36.0) Red Cell Distribution Width 12.9 % (11.6-14.8) Platelet Count 205 K/UL (150-450) Mean Platelet Volume 7.0 FL (6.5-10.1) Neutrophils (%) (Auto) 82.4 % (45.0-75.0) H Lymphocytes (%) (Auto) 8.4 % (20.0-45.0) L Monocytes (%) (Auto) 7.8 % (1.0-10.0) Eosinophils (%) (Auto) 0.7 % (0.0-3.0) Basophils (%) (Auto) 0.7 % (0.0-2.0) Sodium Level 141 MMOL/L (136-145) Potassium Level 3.0 MMOL/L (3.5-5.1) L Chloride Level 106 MMOL/L (98-107) Carbon Dioxide Level 26 MMOL/L (21-32) Anion Gap 9 mmol/L (5-15) Blood Urea Nitrogen 14 mg/dL (7-18) Creatinine 0.8 MG/DL (0.55-1.30) Estimat Glomerular Filtration Rate > 60 mL/min (>60) Glucose Level 108 MG/DL (74-106) H Calcium Level 7.8 MG/DL (8.5-10.1) L Total Bilirubin 1.1 MG/DL (0.2-1.0) H Direct Bilirubin 0.4 MG/DL (0.0-0.3) H Aspartate Amino Transf (AST/SGOT) 177 U/L (15-37) H Alanine Aminotransferase (ALT/SGPT) 214 U/L (12-78) H Alkaline Phosphatase 104 U/L (46-116) Total Protein 5.9 G/DL (6.4-8.2) L Albumin 2.0 G/DL (3.4-5.0) L Globulin 3.9 g/dL Albumin/Globulin Ratio 0.5 (1.0-2.7) L CA 19-9 Antigen Pending Body Fluid Carcinoembryonic Antigen Pending Plan Problems: (1) Acute pancreatitis Assessment & Plan: Possible acute acalculous cholecystitis with acute pancreatitis US and CT noted labs reviewed GI input noted npo iv fluids trend labs bowel rest will follow with exams thank you eus w/ biopsy improved diet as tolerated d/c outpatient follow up Liver: Liver diameter of 14.7 cm. No visible parenchymal lesions. No intrahepatic biliary ductal dilatation. Gallbladder: Distended gallbladder with mild wall thickening up to 4.2 mm. No visible stones or sludge. No pericholecystic fluid. Common bile duct: Common bile duct diameter of 5.2 mm, within normal limits. Pancreas: Unremarkable as visualized. Aorta: Proximal abdominal aorta appears within normal limits. Mid and distal abdominal aorta are scattered by bowel gas. IMPRESSION: Distended gallbladder with mild wall thickening up to 4.2 mm. No visible stones or sludge. No pericholecystic fluid. Normal diameter of the common bile duct. (2) Gallstone pancreatitis Assessment & Plan: The pancreas is mildly prominent. There is infiltration of the peripancreatic fat. Fluid is seen tracking into the lesser sac, and along the mesenteric root and Gerota's fascia on the right. A small amount of fluid is also seen over the dome of the spleen. There is a cystic lesion in the pancreatic tail which measures 2 cm in diameter. No other organized fluid collection demonstrated. The pancreas enhances normally. The gallbladder is distended. Demonstrates a small amount of mural calcification and mural edema. No definite gallstones. The common bile duct is borderline dilated, measuring 7 mm diameter. No definite downstream obstructive lesion is demonstrated. The liver demonstrates multiple subcentimeter low-attenuation lesions which are too small to characterize. The spleen, adrenals, kidneys are unremarkable. No retroperitoneal or mesenteric mass or adenopathy. No pelvic mass or adenopathy. Lack of enteric contrast limits assessment of the GI tract. The colon demonstrates multiple diverticula. The appendix is normal. The small bowel is nondilated. No free intraperitoneal gas demonstrated. Distal esophagus is slightly fluid-filled. The stomach and duodenum are unremarkable. The included lung bases demonstrate bilateral posterior dependent atelectatic changes. The bones demonstrate degenerative spondylosis changes. Impression: Evidence of acute pancreatitis. No evidence of pancreatic necrosis 2 cm cystic lesion in the pancreatic tail. If there is been prior history of pancreatitis, this likely represents a pseudocyst. However, the possibility of pancreatic cystic neoplasm should also be considered and follow-up imaging is recommended Distended gallbladder without stones. Mild gallbladder wall edema. Likely reactive related to the the pancreatic inflammation, but the possibility of acute cholecystitis should also be considered. Borderline extra hepatic biliary ductal dilatation without downstream obstructive lesion demonstrated, probably age- related Subcentimeter low-attenuation lesions in the liver, too small to characterize, most likely benign simple cysts or bile hamartomas Colonic diverticula. No evidence of diverticulitis Fluid-filled esophagus, probably due to age-related dysmotility Basilar dependent pulmonary atelectatic changes and degenerative spondylosis changes incidentally noted Christiano Barger May 28, 2020 13:30
--- NOTE | 2020-05-28 15:30 | NUR ---
NURSE NOTES: Discharge instructions reviewed with patient and family member at bedside,verbalized understanding. ID bracelet removed. Right hand saline lock discontinued, no active bleeding. Rx (Levofloxacin) filled at [facility] pharmacy and delivered. All belongings, discharge instructions, RX medication given to patient. Instructed family member on flu vaccine, provided written education. Informed patient family member to call Dr. Hall office (number provided) and schedule follow up appointment for biopsy results, verbalized understanding. Flu vaccine administered prior to discharge, tolerated well. Sent down to [facility] via in stable condition. Discharged home at 1530.
--- NOTE | 2020-05-28 17:03 | NUR ---
INSURANCE CLINICALS/REVIEW FAXED TO [facility] [phone]
--- NOTE | 2020-05-29 07:47 | Discharge Summary ---
Discharge Summary Discharge Summary _ DATE OF ADMISSION: 05/23/2020 DATE OF DISCHARGE: 05/28/2020 DISCHARGED BY:Dr. Lawson REASON FOR ADMISSION: 80 years old female with past medical history of CVA, presented to emergency department complaining of abdominal pain , which started about 1 hour prior to presentation. Abdominal pain reported as upper, right-sided , with associated nausea and vomiting. No hematemesis. Laboratory work-up revealed leukocytosis WBC 18 , stable hemoglobin hematocrit and platelet count. Rapid COVID-19 was negative Stable electrolytes. Troponin negative. AST 34 , ALT 15 lipase > 2000 [address] CT scan of the abdomen and pelvis revealed acute pancreatitis no evidence of pancreatic necrosis . 2 cm cystic lesion in the pancreatic tail. If there was a prior history of pancreatitis, this likely represented a pseudocyst. However, the possibility of pancreatic cystic neoplasm should also be considered and follow-up imaging was recommended Distended gallbladder without stones. Mild gallbladder wall edema. Chest x-ray revealed no acute cardiopulmonary pathology. Patient subsequently admitted to medical surgical floor for further management. CONSULTANTS: ID specialist Dr. Yeh [facility]SE: Patient admitted to medical surgical floor. Patient was kept n.p.o. Patient started on broad-spectrum antibiotics and IV fluid. DVT prophylaxis provided. Pain management was addressed as needed. Antiemetic provided as needed. Abdominal ultrasound revealed distended gallbladder with a mild wall thickening up to 4.2 mm. No visible stones or sludge. No pericholecystic fluid. Normal diameter of the common bile duct. Lipase trended down. Patient slowly started on diet as tolerated. Antibiotic provided as per ID specialist recommendation. Patient initially was on the IV antibiotic and changed to oral upon discharge to complete the course. Leukocytosis trending down. No fevers. Renal parameters and electrolytes were closely monitored; electrolytes/potassium corrected. MRI of the abdomen was ordered , but patient was unable to tolerate it. Patient undergone endoscopic ultrasound with fine-needle aspiration x3 due to pancreatic cyst , questionable pancreatic mass. Procedure found gallbladder wall thickening about 4 mm, gallbladder polyp of 6 mm, no gallstones. No common bile duct or pancreatic duct dilatation. Atrophic pancreas. Cystic lesion in the tail of the pancreas suspicious for malignancy , status p ost fine-needle aspiration x3. CA 19-9 and IgG4 pending at the time of this dictation. Patient to follow-up with GI as outpatient with biopsy results. Patient clinically stabilized and was ready for discharge home . FINAL DIAGNOSES: Acute pancreatitis Pancreatic cyst Possible pseudocyst Possible pancreatic mass Status post EUS with biopsy History of CVA Diabetes Hypertension Hypokalemia-repleted Leukocytosis- improving DISCHARGE MEDICATIONS: See Medication Reconciliation list. DISCHARGE INSTRUCTIONS: Patient was discharged home Follow-up with primary care provider and GI specialist with the biopsy results in 1 week I have been assigned to dictate discharge summary for this account. I was not involved in the patient's management. Marisabel Franco NP May 29, 2020 07:47
--- NOTE | 2020-05-29 12:06 | NUR ---
INSURANCE DC SUMMARY/ INSTRUCTIONS FAXED TO [facility] [phone]
== END 2020-05-28 15:43 | disposition home or self-care (01) | DRG 439 ==
LOC: EMR 13:45 → 3E 15:31 → EDBEDREQ 16:10
PROC: 0F9G8ZZ Drainage of Pancreas, Via Natural or Artificial Opening Endoscopic (ICD-10-PCS; principal; 2020-05-28 08:00)
DX: K85.90 Acute pancreatitis without necrosis or infection, unspecified (principal); K86.3 Pseudocyst of pancreas; R65.10 Systemic inflammatory response syndrome (SIRS) of non-infectious origin without acute organ dysfunction; C25.9 Malignant neoplasm of pancreas, unspecified; E11.65 Type 2 diabetes mellitus with hyperglycemia; Z86.73 Personal history of transient ischemic attack (TIA), and cerebral infarction without residual deficits; E11.9 Type 2 diabetes mellitus without complications; E87.6 Hypokalemia; Z88.0 Allergy status to penicillin; K57.90 Diverticulosis of intestine, part unspecified, without perforation or abscess without bleeding; I10 Essential (primary) hypertension; K82.4 Cholesterolosis of gallbladder
CPT/HCPCS: 36415; 71045; 74177; 76700; 80048; 80053; 80061; 81003; 82150; 82248; 82784; 82787; 83690; 84484; 85007; 85025; 85610; 85730; 93005; 94003; 94150; 94640; 94664; 96374; 96375; 99285; J2405; J7030; J7620; J8499; U0002